=== PATIENT | male | born 1945 | race Caucasian/White ===

== ENCOUNTER 2016-08-13 09:30 | Inpatient (IN) | payer MEDICARE, BC ==
--- NOTE | 2016-08-07 20:17 | HP ---
HISTORY AND PHYSICAL: DATE OF ADMISSION/SURGERY: 08/13/16 DATE OF OFFICE VISIT: 08/07/16 PROVIDER: Dr. Tiara Valverde. (DICTATED BY ARAVIND PERSAUD NP) CHIEF COMPLAINT: Preop for right total knee arthroplasty. HISTORY OF PRESENT ILLNESS: Mr. Garcia is a 71-year-old gentleman who has been having increased right knee pain for a few years. He states that at rest, his knee does not bother him at all, but when he moves his knee, it begins to hurt. He states he ambulates using a walker. He has failed physical therapy, antiinflammatories, and intraarticular joint injections. He is now electing to have a total knee arthroplasty done. PAST MEDICAL HISTORY: 1. Morbid obesity. 2. Diabetes. 3. Hypertension. 4. Osteoarthritis. 5. COPD. 6. Spinal stenosis. 7. Cervical spondylosis. 8. Peripheral neuropathy. 9. Hernia. PAST SURGICAL HISTORY: 1. Left total knee arthroplasty. 2. Cholecystectomy. 3. Cervical spine fusion. 4. Large toe amputation and reattachment. MEDICATIONS: 1. Clonidine 0.3 mg 1 by mouth b.i.d. 2. Tylenol 325 mg as needed for pain. 3. Losartan potassium 50 mg 2 by mouth every day. 4. Levothyroxine sodium 112 mcg 1 by mouth every day. 5. Yumiko aspirin low dose 81 mg 1 by mouth every day. 6. Dutasteride 0.5 mg 1 p.o. daily. 7. Minoxidil. 8. Simethicone 80 mg 1 four times daily. 9. CharcoCaps. 10. NovoLog FlexPen 100 units per mL sliding scale. 11. Insulin glargine human 100 units per mL. ALLERGIES: SULFA ANTIBIOTICS, LIPITOR, AMLODIPINE, SIMVASTATIN, ENALAPRIL, AMBIEN, BACLOFEN, PANTOPRAZOLE. SOCIAL HISTORY: The patient lives with . The patient states he is a former smoker, smoked for 20 years, quit 30 years ago which equals to 2-pack-per -day smoking history. The patient states that he drinks occasionally. The patient denies any illicit drug use. REVIEW OF SYSTEMS: General: The patient denies fevers, chills, or night sweats. No known anesthesia problems. HEENT: The patient denies headaches, lightheadedness, or syncopal episodes. Cardiothoracic: The patient denies chest pain, heart palpitations, or edema. Pulmonary: The patient denies any shortness of breath with exertion, chronic cough, or COPD. GI: The patient denies any nausea, vomiting, diarrhea, or constipation. : The patient denies any nocturia, urinary frequency, or urinary urgency. Musculoskeletal: The patient admits to pain of the right knee. The patient denies any chronic or intermittent back pain. Neuro: The patient denies any paresthesias, numbness , seizures, stroke, or epilepsy. Integument: The patient denies any abrasions , lesions, rashes, lumps, or open sores. Endocrine: The patient denies any diabetes or thyroid issues. Hematology: The patient denies any easy bruising, anemia, or excessive bleeding. PHYSICAL EXAMINATION GENERAL: The patient is awake, alert, and oriented, in no acute distress. HEENT: Normocephalic, atraumatic. Hearing and vision are grossly intact. PULMONARY: Lungs clear to auscultation bilaterally with no wheezes, rales, or rhonchi. CARDIO: Regular rate and rhythm with S1 and S2. No S3 or S4 appreciated. No murmurs, rubs, or gallops. ABDOMEN: Umbilical hernia is visible. Bowel sounds in all 4 quadrants with significant distention. No palpable masses. Nontender. MUSCULOSKELETAL: Right lower extremity: The patient's skin is intact with moderate effusion of the knee with palpable tenderness to palpation along the anterior, medial, and lateral joint line. Range of motion is from 15 to 90 degrees of flexion. No varus or valgus instability. Negative for Pietro's. Distally, there is 5/5 ankle dorsiflexion and plantar flexion strength. The patient seems to have a decrease in sensation to light touch in the toes in a stocking glove distribution. Dorsalis pedis pulse and posterior tibial are 2+. DIAGNOSTIC STUDIES: Multiple views of the right knee showed severe end-stage degenerative osteoarthritis. There is osteophyte formation, subchondral sclerosis. ASSESSMENT: Preop for right total knee replacement. PLAN: The patient will return 10 to 14 days postoperatively for suture removal and followup. A prescription for Percocet 5/325 has been sent to the pharmacy of record to be used for postoperative pain management. A script for Coumadin was sent to the pharmacy for postop DVT prophylaxis. Colace was sent to the pharmacy to be used as needed for constipation. The risks and benefits of surgery were discussed with the patient today and he was amenable to this. Consent was signed. AIDEN JOSE [id number]/[facility] #: [id number] MTDDavid
[~2016-08-13 09:30] MED LIST: Buffered Lidocaine 1% SYR 3ML* 3 ML/SYR SYRINGE INTRADERM ONE; Famotidine IV* 10 MG/ML 2 ML (20 mg) IV ONE; Metoclopramide IV* 5 MG/ML 2 ML VIAL IV SLOW PU ONE
[2016-08-13] MEDS ORDERED: Metoclopramide IV* 5 MG/ML 2 ML VIAL ONE (11:41)
[2016-08-13] MEDS ORDERED: ceFAZolin 1 GM in Dextrose (*) 1 GM/50 ML BAG IVPB ONE (11:41)
[2016-08-13] MEDS ORDERED: ceFAZolin 2 GM PREMIX (*) 2 GM/50 ML BAG IVPB ONE (11:41)
[2016-08-13] MEDS ORDERED: Famotidine IV* 10 MG/ML 2 ML (20 mg) ONE (11:41)
[2016-08-13] MEDS ORDERED: Buffered Lidocaine 1% SYR 3ML* 3 ML/SYR SYRINGE ONE (11:41)
[2016-08-13] MEDS ORDERED: KETAMINE HCL* 50 MG/ML 10 ML VIAL ONE (13:29)
[2016-08-13] MEDS ORDERED: Morphine PF AMP (0.5MG/ML)* 5 MG/10 ML AMP ONE (13:29)
[2016-08-13] MEDS ORDERED: Midazolam* 1 MG/ML 5 ML VIAL (5 MG) ONE (13:29)
[2016-08-13] MEDS ORDERED: Sodium Chloride * 10 ML ONE (14:39)
[2016-08-13] MEDS ORDERED: Propofol* 10 MG/ML 20 ML BTL IV PUSH ONE (15:58)
[2016-08-13] MEDS ORDERED: DiMENhydriNATE IV* 50 MG/ML VIAL IV PUSH PRN (16:22)
[2016-08-13] MEDS ORDERED: Polyethylene Glycol 3350* 17 GM PACKET PO PRN (16:37)
[2016-08-13] MEDS ORDERED: Acetaminophen TAB* 325 MG PO PRN (16:37)
[2016-08-13] MEDS ORDERED: Bisacodyl SUPP* 10 MG SUPP PR PRN (16:37)
[2016-08-13] MEDS ORDERED: Magnesium Hydroxide LIQ* 30 ML UDC PO PRN (16:37)
[2016-08-13] MEDS ORDERED: Albuterol HFA INHALER* 8 gm MDI INH PRN (16:44)
[2016-08-13] MEDS ORDERED: NOVALOG INSULIN SUBCUT SCH (16:45)
[2016-08-13] MEDS ORDERED: Naloxone* 0.4 MG/ML 1 ML VIAL IV PRN (17:08)
[2016-08-13] MEDS ORDERED: Ondansetron INJ* 2 MG/ML VIAL IV PRN (17:08)
[2016-08-13] MEDS ORDERED: Dextrose 50% Syringe 50 ML* 25 GM/50 ML SYRINGE IV PUSH PRN (18:58)
[2016-08-13] MEDS ORDERED: oxyCODONE/Acetamin 5/325 MG* TAB ONE (20:02)
[2016-08-13] MEDS: oxyCODONE/Acetamin 5/325 MG* TAB PO PRN (20:03)
--- NOTE | 2016-08-13 20:28 | RAD ---
INDICATION: Right total knee arthroplasty COMPARISON: Preoperative x-ray dated May 24, 2016 TECHNIQUE: 2 view radiograph of the right knee. FINDINGS: The recently placed right knee prosthesis is anatomically aligned in the AP and lateral views. There is no evidence of periprostatic fracture. IMPRESSION: Anatomically aligned right knee prosthesis.
[2016-08-13] MEDS ORDERED: Insulin GLARGINE(*) 1 UNITS UNIT SUBCUT SCH (21:00)
[2016-08-13] MEDS: cloNIDine TAB* 0.1 MG PO SCH (21:33)
[2016-08-13] MEDS: Finasteride TAB* 5 MG PO SCH (21:34)
[2016-08-13] MEDS: Docusate CAP* 100 MG PO SCH (21:34)
[2016-08-13] MEDS: Insulin GLARGINE(*) 1 UNITS UNIT SUBCUT SCH (21:36)
--- NOTE | 2016-08-13 21:36 | CONS ---
CONSULTATION REPORT: ADDENDUM: Mr. Garcia is a 71-year-old male who is currently status post right knee replacement with Dr. Valverde. We were consulted in regards to his current medical problems including diabetes, hypertension. For further details of the patient's presentation, please see history and physical/consultation dictated by Candace De Leon on 08/13/16 with which I agree. Thank you very much for consult. We will follow the patient. [id number]/[facility] #: [id number] NAKUL
[2016-08-13] MEDS: Clindamycin 600 MG IVPREMIX(* 600 MG/50 ML SDV IV SCH (21:49)
[2016-08-13] MEDS ORDERED: Warfarin TAB(*) 6 MG PO ONE (22:00)
--- NOTE | 2016-08-13 23:23 | CONS ---
ATTENDING PHYSICIAN ADDENDUM INCLUDED ON THIS REPORT CONSULTATION REPORT: DATE OF CONSULTATION: 08/13/16 DATE OF ADMISSION: 08/13/16 PROVIDER: Amaris Burgess NP ATTENDING PHYSICIAN: Dr. Tolliver * (report dictated by Amaris Burgess NP) PRIMARY CARE PROVIDER: Dr. Lito Sosa. REFERRING PHYSICIAN: Dr. Valverde. CONSULTATION REASON: Co-medical management of comorbidities. HISTORY OF PRESENT ILLNESS: Mr. Garcia is a 71-year-old male with a past medical history of morbid obesity, insulin dependent type 2 diabetes, hypertension, COPD, who underwent an elective right total knee today, 08/13/16, with Dr. Valverde. Hospital Medicine was asked to co-medical manage the patient's comorbidities. The patient was seen and evaluated in the PACU at the bedside. The patient is alert and oriented x3, in no acute distress. The patient reports "I feel great." He denies any nausea. Denies any pain. The patient reports he underwent a left total knee several years ago and did very well. The patient reports that his diabetes is well controlled as well as his hypertension. He currently offers no complaints. The patient denies any recent illnesses. Denies any fever, chills, shortness of breath, or chest pain. PAST MEDICAL HISTORY: 1. Insulin dependent type 2 diabetes. 2. Morbid obesity. 3. Hypertension. 4. Osteoarthritis. 5. COPD. 6. Spinal stenosis. 7. Cervical spondylosis. 8. Peripheral neuropathy. 9. Hernia. 10. Status post left total knee arthroplasty. 11. Cholecystectomy. 12. Cervical spine fusion. 13. Large toe amputation reattachment. 14. Hypothyroidism. HOME MEDICATIONS: 1. Clonidine 0.3 mg p.o. b.i.d. 2. Acetaminophen 325 mg p.o. p.r.n. pain. 3. Losartan potassium 100 mg p.o. daily. 4. Synthroid 112 mcg p.o. daily. 5. Aspirin 81 mg p.o. daily. 6. Dutasteride 0.5 mg p.o. daily. 7. Insulin Lantus 80 units injection b.i.d. 8. NovoLog FlexPen 100 units/mL sliding scale. INPATIENT MEDICATIONS: 1. Clonidine 0.3 mg p.o. b.i.d. 2. Acetaminophen 650 mg p.o. q.4 hours p.r.n. 3. Albuterol HFA inhaler 2 puffs INH. q.4 hours p.r.n. 4. Dulcolax 10 mg DE daily p.r.n. 5. Colace 100 mg p.o. b.i.d. 6. Lovenox 30 mg subcu q.24 hours. 7. Insulin glargine 40 units subcu b.i.d. 8. Insulin lispro sliding scale. 9. Lactulose 30 mL p.o. q.6 hours p.r.n. 10. Synthroid 112 mcg p.o. daily. 11. Losartan 100 mg p.o. q.a.m. 12. Milk of Magnesia 30 mL p.o. q. 6 hours p.r.n. 13. Morphine 2 mg IV q.2 hours p.r.n. 14. Narcan 0.08 mg IV q.2 minutes p.r.n. 15. Zofran 4 mg IV q.6 hours p.r.n. 16. MiraLAX 17 g p.o. daily p.r.n. 17. Vitamin 1 tab p.o. daily. 18. Coumadin 6 mg p.o. once. 19. Benadryl 25 mg p.o. q.6 hours p.r.n. 20. Oxycodone 10 mg p.o. q.4 hours p.r.n. 21. Oxycodone/acetaminophen 1 to 2 tabs p.o. q.3 hours p.r.n. 22. Oxycodone/acetaminophen 2 tabs p.o. q.4 hours p.r.n. ALLERGIES: AMOXICILLIN, AMLODIPINE, ATENOLOL, BACLOFEN, ENALAPRIL, SULFA ANTIBIOTICS, LIPITOR, SIMVASTATIN, AMBIEN, PANTOPRAZOLE, HYDROCHLOROTHIAZIDE, ATORVASTATIN, PAXIL, OXYBUTYNIN, SINGULAIR, GLIPIZIDE, ESOMEPRAZOLE. FAMILY HISTORY: Reviewed and noncontributory. SOCIAL HISTORY: The patient is a former smoker. Smoked for approximately 20 years, quitting about 30 years ago. He reports a 2 pack per day smoking history. Occasional to rare alcohol use. Denies recreational drug use. The patient currently lives at home with his , who is his healthcare proxy. REVIEW OF SYSTEMS: A 14-point review of systems was performed. All the pertinent positives and negatives are mentioned in the history of present illness. All the remaining systems are negative. PHYSICAL EXAMINATION: Vital Signs: Temperature 97.0, heart rate 60, respirations 16, O2 sat 98% on 2 L, blood pressure 139/63. Appearance: Obese male sitting up on the PACU stretcher. Alert and oriented x3, in no acute distress. Good historian. Very friendly. Appropriate to situation. HEENT: Head is normocephalic, atraumatic. Pupils are equal and reactive to light. Oropharynx is clear. Dry mucous membranes. Neck: Supple. No cervical or supraclavicular lymphadenopathy. Cardiac: S1, S2. Regular rate and rhythm. No murmurs, rubs, or gallops appreciated. Respiratory: Lungs are clear to auscultation bilaterally. Good aeration throughout. Abdomen: Obese. Normal bowel sounds x4. Soft, nontender, nondistended. Umbilical hernia is visible. Extremities: Upper extremities have good strength 5/5. In regards to the patient's lower extremities, the patient can wiggle his toes, has sensation in his toes. His right knee has a clean, dry, and intact dressing with Cryo unit attached. Neuro: Cranial nerves II through XII are grossly intact. Psych: Appropriate to situation. Calm, appropriate. ASSESSMENT AND PLAN: Mr. Garcia is a 71-year-old male with a past medical history of morbid obesity, insulin dependent type 2 diabetes, hypertension, chronic obstructive pulmonary disease, previous tobacco abuse, and hypothyroidism, who presents to [facility] for an elective right total knee replacement by Dr. Valverde. Hospital Medicine was asked to co-medical manage the patient's comorbidities. 1. Status post right total knee replacement. Disposition per Dr. Valverde's orthopedic team. Pain management, bowel regimen, PT, OT, monitor H and H. 2. Insulin dependent type 2 diabetes. Plan to decrease the patient's Lantus by 50%. Per patient, he took 40 units of Lantus this morning prior to surgery. Plan to give the patient 40 units of Lantus this evening. Lispro sliding scale with fingerstick blood glucose AC. Consistent carb diet. 3. Hypertension, controlled. Continue losartan and clonidine. 4. Hypothyroidism. Continue Synthroid. 5. Chronic obstructive pulmonary disease, currently not in exacerbation. Encouraged incentive spirometer. Albuterol p.r.n. 6. DVT prophylaxis. Lovenox. 7. Code status. Full code. The patient's is the healthcare proxy. TIME SPENT: Approximately 60 minutes were spent on this consultation. Hospital Medicine will continue to follow along. AMARIS BURGESS, IVONE ADDENDUM: Mr. Garcia is a 71-year-old male who is currently status post right knee replacement with Dr. Valverde. We were consulted in regards to his current medical problems including diabetes, hypertension. For further details of the patient's presentation, please see history and physical/consultation dictated by Amaris Burgess on 08/13/16 with which I agree. Thank you very much for consult. We will follow the patient[place] [id number]/[facility] #: [id number] [place] [id number]/[facility] #: [id number] NAKUL
[2016-08-14] MEDS: oxyCODONE/Acetamin 5/325 MG* TAB PO PRN ×4 (05:26→16:30)
[2016-08-14] MEDS: Levothyroxine TAB* 112 MCG TAB PO SCH (05:26)
[2016-08-14] MEDS: Clindamycin 600 MG IVPREMIX(* 600 MG/50 ML SDV IV SCH ×2 (05:27→13:58)
[2016-08-14 06:30] LABS: Hematocrit 40 % (42-52)
[2016-08-14 06:54] LABS: BUN/Creatinine Ratio 13.6 (8-20); Calcium 8.7 mg/dL (8.6-10.3); EGFR African American 110.1 (>60); EGFR Non-African American 85.6 (>60); Potassium 4.4 mmol/L (3.5-5.0)
[2016-08-14] MEDS ORDERED: Ondansetron INJ* 2 MG/ML VIAL IV PRN (07:00)
[2016-08-14] MEDS ORDERED: diPHENhydraMINE IV* 50 MG/ML 1 ml VIAL (BENADRYL) IV PRN (07:00)
[2016-08-14] MEDS ORDERED: diPHENhydraMINE PO* 25 MG PO PRN (07:00)
[2016-08-14] MEDS ORDERED: oxyCODONE/Acetamin 5/325 MG* TAB PO PRN (07:00)
[2016-08-14] MEDS ORDERED: Ondansetron TAB* 4 MG PO PRN (07:00)
[2016-08-14] MEDS ORDERED: oxyCODONE TAB* 5 MG TAB PO PRN (07:00)
--- NOTE | 2016-08-14 07:54 | PN ---
Progress Note - Progress Note SOAP: Subjective: Pt. reports r knee is painful and stiff/weak. BG labile postop. Objective: RLE - dressing c/d/i. distally +df/pf, full sens lt, 2+ dp pulse. Vital Signs: Temp Pulse Resp BP Pulse Ox 98.4 F 92 18 135/51 94 08/14/16 07:35 08/14/16 07:35 08/14/16 07:35 08/14/16 07:35 08/14/16 07:35 Laboratory Results - last 24 hr 08/13/16 08/13/16 08/13/16 11:58 18:23 18:26 Hgb Hct INR (Anticoag Therapy) Sodium Potassium Chloride Carbon Dioxide Anion Gap BUN Creatinine Est GFR ( Amer) Est GFR (Non-Af Amer) BUN/Creatinine Ratio Glucose POC Glucose (mg/dL) 133 H 60 L 72 L Calcium 08/13/16 08/13/16 08/13/16 19:03 19:17 19:26 Hgb Hct INR (Anticoag Therapy) Sodium Potassium Chloride Carbon Dioxide Anion Gap BUN Creatinine Est GFR ( Amer) Est GFR (Non-Af Amer) BUN/Creatinine Ratio Glucose POC Glucose (mg/dL) 71 L 62 L 134 H Calcium 08/13/16 08/13/16 08/13/16 19:37 20:36 22:45 Hgb Hct INR (Anticoag Therapy) Sodium Potassium Chloride Carbon Dioxide Anion Gap BUN Creatinine Est GFR ( Amer) Est GFR (Non-Af Amer) BUN/Creatinine Ratio Glucose POC Glucose (mg/dL) 123 H 165 H 195 H Calcium 08/14/16 08/14/16 08/14/16 06:05 06:05 06:05 Hgb 13.0 L Hct 40 L INR (Anticoag Therapy) 1.06 Sodium 132 L Potassium 4.4 Chloride 99 L Carbon Dioxide 29 Anion Gap 4 BUN 12 Creatinine 0.88 Est GFR ( Amer) 110.1 Est GFR (Non-Af Amer) 85.6 BUN/Creatinine Ratio 13.6 Glucose 206 H POC Glucose (mg/dL) Calcium 8.7 08/14/16 07:28 Hgb Hct INR (Anticoag Therapy) Sodium Potassium Chloride Carbon Dioxide Anion Gap BUN Creatinine Est GFR ( Amer) Est GFR (Non-Af Amer) BUN/Creatinine Ratio Glucose POC Glucose (mg/dL) 236 H Calcium Assessment: 71 yo M pod 1 s/p RTKA Plan: Appreciate Medicine team diabetic management wbat RLE PT/OT 8 mg coumadin tonight, start lovenox per protocol when spinal removed rodriguez d/c this am
[2016-08-14] MEDS ORDERED: Losartan TAB* 25 MG PO SCH (09:00)
[2016-08-14] MEDS: Insulin LISPRO* 1 UNITS UNIT SUBCUT SCH ×3 (09:32→18:42)
[2016-08-14] MEDS: Insulin GLARGINE(*) 1 UNITS UNIT SUBCUT SCH ×2 (09:33→21:59)
[2016-08-14] MEDS: Losartan TAB* 25 MG PO SCH (09:35)
[2016-08-14] MEDS: Vitamin THERAPEUTIC TAB PO SCH (09:37)
[2016-08-14] MEDS: cloNIDine TAB* 0.1 MG PO SCH ×2 (09:37→21:58)
[2016-08-14] MEDS: Docusate CAP* 100 MG PO SCH ×2 (09:37→21:58)
--- NOTE | 2016-08-14 10:46 | OP ---
OPERATIVE REPORT: DATE OF OPERATION: 08/13/16 DATE OF : 47 SURGEON: Tiara Valverde MD ANESTHESIOLOGIST: Jaciel Mckenzie MD ANESTHESIA: Spinal. PRE-OP DIAGNOSIS: Severe end-stage degenerative osteoarthritis of the right knee joint. POST-OP DIAGNOSIS: Severe end-stage degenerative osteoarthritis of the right knee joint. OPERATIVE PROCEDURE: Right total knee arthroplasty. INDICATIONS: Mr. Garcia is a 71-year-old gentleman with years of increasingly severe right kne e pain. He failed conservative treatment with antiinflammatories, pain medications, intraarticular injections, and physical therapy. He elected to undergo right total knee arthroplasty due to contin ued pain and decreased quality of life. Radiographs and physical exam confirmed [id number] severe end-stage arthritis of the right knee joint. Informed consent was obtained from the patient. He understood the risks of the procedure included, but were not limited to, bleeding, infection, damage to nearby structures, continued pain, need for further surgery, intraoperative fracture, nerve palsy, hardware failure or loosening, stroke, heart attack, blood clot, and . He wished to proceed. TOURNIQUET TIME: 60 minutes. COMPLICATIONS: None. ESTIMATED BLOOD LOSS: 200 cc. SPECIMEN: Bone and cartilage from the right knee joint sent to Pathology. HARDWARE: This is [employer] cemented total knee hardware. For the cement, 2 packages of Sim plex bone cement. For the femur, a size 7 right femoral component. For the tibia, a size 7 right t ibial baseplate and an 11-mm posterior stabilized insert, and for the patella, 38, 3-peg all-poly pa tella. INTRAOPERATIVE FINDINGS: Intraoperatively, the patient was noted to have 10-degree flexion contract ure preoperatively. Postop range of motion was full extension to 120 degrees of flexion limited by morbid obese body habitus. The patient was noted to have severe full thickness cartilage loss in th e medial and patellofemoral compartments. DESCRIPTION OF PROCEDURE: Mr. Garcia was identified in the preanesthesia unit. His right lowe r extremity was marked as the correct operative side. Informed consent was signed and placed in the the chart. The patient was taken to the operating room and placed under spinal anesthesia. A Freeman catheter was placed. Tourniquet was placed on the right side. The right lower extremity was prepp ed and draped in the usual sterile fashion. Preop time-out was made to correctly identify the patie nt, side, and site. Appropriate preoperative antibiotics were given within 1 hour of incision. Tourniquet was inflated until the tourniquet time for this procedure was 60 minutes. A 10 blade was used to make a 14-cm midline incision. This was carried down to the extensor mechanism. A new 10 blade was used to make a standard medial parapatellar arthrotomy. The patella was subluxed laterall y. Soft tissue was subperiosteally elevated along the superomedial tibia to the mid sagittal plane using electrocautery. The knee was flexed up. Anterior horn of the lateral meniscus and ACL were s harply released. A drill was used to enter the distal femur. Intramedullary distal femoral cutting guide was placed and pinned into proper position. Oscillating saw was used to make the appropriate distal femoral cut. An external rotation guide was then pinned on the distal femur and the femur w as sized to a size 7. Size 7 multi-cutting jig was pinned on the distal femur and oscillating saw w as used to make the appropriate 4-chamfer cuts. All bony fragments were carefully removed. The PCL was completely released. Tibia was subluxed anteriorly. The extramedullary tibial cutting guide was pinned in to proper position on the proximal tibia. Oscillating saw was used to make a pr oximal tibial cut perpendicular to the mechanical axis of the tibia. The bone was carefully removed . The knee was brought out into full extension and there was some medial ligament tightness. Electr ocautery was used to perform a conservative release here. Medial and lateral ligamentous balancing were improved. Flexion and extension gaps were noted to be well balanced. The knee was out in full extension with the spacer blocks fitting nicely. The knee was flexed up. Lamina handle sander operator was placed both medially and laterally. Any remaining menis cus was carefully excised using electrocautery. Posterior femoral condyles had any osteophytes rachael zacarias using a curved osteotome and curette. Next, a size 7 femoral trial side right was impacted on to the distal femur. This implant trial had good fit and stability. The box for the posterior stabilized implant was prepared using a reamer a nd box-cut osteotome. Trial 7 tibial tray and 9-mm insert trial were placed. The knee was taken th rough a range of motion and noted to have full extension to 120 degrees of flexion. Good patellofem oral tracking. The patella was everted. 9 mm of patellar bone and cartilage were carefully removed using an oscillating saw. The patella was sized to a size 38. Three drill holes were drilled throu gh the patella using a size 38 guide. The 38 trial was placed and the knee was taken through range of motion. The patellofemoral tracking was satisfactory. All trials were carefully removed. The tibia was subluxed anteriorly and sized to a size 7. Proxim al tibia was prepared using a keel punch. All bony cut surfaces were copiously irrigated with steri le saline and dried. The final implants were cemented in place starting with the tibia followed by the femur and lastly the patella. An 11-mm insert trial was placed while the knee was brought out i nto full extension. The cement was allowed to fully cure and the tourniquet was turned down. Once the cement was fully cured, the capsule was checked for any bleeding or excess cement. Final implan t chosen was an 11-mm posterior stabilized articular insert. This was locked into the position on t he tibial tray. Stability of the insert was checked and rechecked and noted to be stable. Final range of motion with full extension to 120 degrees of flexion with good patellofemoral trackin g. The knee was copiously irrigated with sterile saline. The extensor mechanism was closed using in terrupted #1 Vicryl's. The rest of the incision was closed in a layered fashion using 0 and 2-0 Colin ryl's. Skin was closed using running 3-0 Vicryl suture. Sterile Xeroform, 4x4's, and Webril were u sed to cover the incision. Kin wrap and cold packs were placed over this. The patient's anesthesia was reversed without difficulty. He was taken to the PACU in stable condition. Intended weightbear ing will be weightbearing as tolerated. Intended DVT prophylaxis will be Coumadin with a Lovenox elba dge. [id number]/[facility] #: [id number]
[2016-08-14] MEDS: Morphine INJ* 2 MG/ML 1 ML CARPUJECT IV PRN ×2 (11:35→14:40)
[2016-08-14] MEDS ORDERED: Simethicone TAB* 80 MG TAB.CHEW PO PRN (12:09)
[2016-08-14] MEDS: Enoxaparin(*) 30 MG/0.3 ML SYR SUBCUT SCH (14:44)
[2016-08-14] MEDS ORDERED: Warfarin TAB(*) 4 MG PO ONE (17:00)
[2016-08-14] MEDS: Finasteride TAB* 5 MG PO SCH (18:43)
--- NOTE | 2016-08-14 20:22 | PN ---
Subjective Date of Service: 08/14/16 Interval History: pt reports he "feels pretty good today". no complaints. his knee pain is well controlled. Good appetite. No fevers or chills. No CP or SOB Objective Active Medications: Acetaminophen (Tylenol Tab*) 650 mg PO Q4H PRN PRN Reason: PAIN OR TEMPERATURE Albuterol (Ventolin Hfa Inhaler*) 2 puff INH Q4H PRN PRN Reason: SHORTNESS OF BREATH Bisacodyl (Dulcolax Supp*) 10 mg [place] DAILY PRN PRN Reason: constipation Clonidine HCl (Catapres Tab*) 0.3 mg PO BID [facility] Last Admin: 08/14/16 09:37 Dose: 0.3 mg Dextrose (D50w Syringe 50 Ml*) 12.5 gm IV PUSH .FOR FS < 60 - SS PRN PRN Reason: FS < 60 Last Admin: 08/13/16 19:19 Dose: 12.5 gm Diphenhydramine HCl (Benadryl Iv*) 12.5 mg IV Q6H PRN PRN Reason: PRURITIS Diphenhydramine HCl (Benadryl Po*) 25 mg PO Q6H PRN PRN Reason: itching Docusate Sodium (Colace Cap*) 100 mg PO BID [facility] Last Admin: 08/14/16 09:37 Dose: 100 mg Enoxaparin Sodium (Lovenox(*)) 30 mg SUBCUT Q24H [facility] Last Admin: 08/14/16 14:44 Dose: 30 mg Finasteride (Proscar Tab*) 5 mg PO QPM [facility] PRN Reason: Protocol Last Admin: 08/14/16 18:43 Dose: 5 mg Lactated Ringer's (Lactated Ringers 1000 Ml Bag*) 1,000 mls @ 100 mls/hr IV PER RATE [facility] Last Admin: 08/14/16 15:43 Dose: 100 mls/hr Insulin Glargine (Lantus(*)) 40 units SUBCUT BID [facility] Last Admin: 08/14/16 09:33 Dose: 40 units Insulin Human Lispro (Humalog*) 0 units SUBCUT AC [facility] PRN Reason: Protocol Last Admin: 08/14/16 18:42 Dose: 6 unit Lactulose (Lactulose*) 30 ml PO Q6H PRN PRN Reason: constipation Levothyroxine Sodium (Synthroid Tab*) 112 mcg PO DAILY@0600 [facility] Last Admin: 08/14/16 05:26 Dose: 112 mcg Losartan Potassium (Cozaar Tab*) 100 mg PO QAM [facility] Last Admin: 08/14/16 09:35 Dose: 100 mg Magnesium Hydroxide (Milk Of Magnesia Liq*) 30 ml PO Q6H PRN PRN Reason: constipation Morphine Sulfate (Morphine Inj (Syringe)*) 2 mg IV Q2H PRN PRN Reason: PAIN Last Admin: 08/14/16 14:40 Dose: 2 mg Multivitamins (Theragran Tab*) 1 tab PO DAILY [facility] Last Admin: 08/14/16 09:37 Dose: 1 tab Ondansetron HCl (Zofran Inj*) 4 mg IV Q6H PRN PRN Reason: nausea Ondansetron HCl (Zofran Tab*) 4 mg PO Q6H PRN PRN Reason: NAUSEA Oxycodone HCl (Roxycodone Tab*) 10 mg PO Q4H PRN PRN Reason: SEVERE PAIN Oxycodone/Acetaminophen (Percocet 5/325 Tab*) 1 tab PO Q3H PRN PRN Reason: PAIN - MODERATE Oxycodone/Acetaminophen (Percocet 5/325 Tab*) 2 tab PO Q3H PRN PRN Reason: PAIN - MODERATE Last Admin: 08/14/16 16:30 Dose: 2 tab Polyethylene Glycol/Electrolytes (Miralax*) 17 gm PO DAILY PRN PRN Reason: Constipation Simethicone (Mylicon*) 80 mg PO Q6H PRN PRN Reason: flatulence Last Admin: 08/14/16 13:03 Dose: 80 mg Vital Signs 08/13/16 08/13/16 08/13/16 20:30 20:50 21:00 Temperature 99.1 F 98.8 F 98.8 F Pulse Rate 106 111 111 Respiratory 18 18 18 Rate Blood Pressure 159/60 154/59 154/59 (mmHg) O2 Sat by Pulse 95 91 91 Oximetry 08/13/16 08/13/16 08/13/16 21:04 21:13 22:17 Temperature 99.0 F Pulse Rate 106 Respiratory 18 18 20 Rate Blood Pressure 154/48 (mmHg) O2 Sat by Pulse 95 Oximetry 08/13/16 08/13/1617 23:07 23:53 00:56 Temperature 98.8 F 99.1 F Pulse Rate 102 104 Respiratory 16 16 Rate Blood Pressure 159/62 133/58 (mmHg) O2 Sat by Pulse 93 94 94 Oximetry 08/14/16 08/14/16 08/14/16 03:20 05:26 07:26 Temperature 98.3 F Pulse Rate 107 Respiratory 16 18 18 Rate Blood Pressure 143/49 (mmHg) O2 Sat by Pulse 96 Oximetry 08/14/16 08/14/16 08/14/16 07:35 07:38 09:39 Temperature 98.4 F Pulse Rate 92 Respiratory 18 18 18 Rate Blood Pressure 135/51 (mmHg) O2 Sat by Pulse 94 94 Oximetry 08/14/16 08/14/16 08/14/16 11:34 11:35 11:39 Temperature 97.9 F Pulse Rate 97 Respiratory 17 18 16 Rate Blood Pressure 156/59 (mmHg) O2 Sat by Pulse 97 Oximetry 08/14/16 08/14/16 08/14/16 12:35 13:03 14:40 Temperature Pulse Rate Respiratory 18 16 18 Rate Blood Pressure (mmHg) O2 Sat by Pulse Oximetry 08/14/16 08/14/16 08/14/16 15:03 15:26 15:27 Temperature 98.3 F Pulse Rate 103 Respiratory 18 18 Rate Blood Pressure 146/52 (mmHg) O2 Sat by Pulse 85 92 Oximetry 08/14/16 08/14/16 08/14/16 15:40 16:30 18:30 Temperature Pulse Rate Respiratory 18 18 18 Rate Blood Pressure (mmHg) O2 Sat by Pulse Oximetry 08/14/16 18:54 Temperature Pulse Rate Respiratory Rate Blood Pressure (mmHg) O2 Sat by Pulse 92 Oximetry Oxygen Devices in Use Now: None Appearance: obese male A+O x3 sitting up on the side of the bed in NAD. at bedside Eyes: No Scleral Icterus, PERRLA Ears/Nose/Mouth/Throat: NL Teeth, Lips, Gums, Mucous Membranes Moist Neck: NL Appearance and Movements; NL JVP Respiratory: Symmetrical Chest Expansion and Respiratory Effort, Clear to Auscultation Cardiovascular: NL Sounds; No Murmurs; No JVD, RRR, No Edema Abdominal: NL Sounds; No Tenderness; No Distention Lymphatic: No Cervical Adenopathy Extremities: - - right knee wih CD+I dressing with cryo unit Skin: No Rash or Ulcers Neurological: Alert and Oriented x 3, NL Sensation, NL Muscle Strength and Tone Lines/Tubes/Other Access: Clean, Dry and Intact Peripheral IV Nutrition: Taking PO's Result Diagrams: 08/14/16 06:05 08/14/16 06:05 Assess/Plan/Problems-Billing Assessment: - Patient Problems (1) Status post total right knee replacement Comment: POD #1 Dispo per Ortho Pain management HH stable (2) Diabetes Comment: - FSBG AC. Resume home Lantus 80 units BID and continue lispro SS (3) HTN (hypertension) Comment: - stable. continue home meds. (4) Hypothyroid Comment: - continue synthroid (5) DVT prophylaxis Comment: coumaidn and lovenox (6) Full code status
[2016-08-15] MEDS: oxyCODONE/Acetamin 5/325 MG* TAB PO PRN ×3 (02:00→11:31)
[2016-08-15 06:23] LABS: Hematocrit 38 % (42-52); Hemoglobin 12.4 g/dl (14.0-18.0); Mean Corpuscular HGB Conc 33 g/dl (31-36); Mean Corpuscular Hemoglobin 30 pg (27-31); Mean Corpuscular Volume 89 fL (80-94); Mean Platelet Volume 9 um3 (7.4-10.4); Red Cell Distribution Width 14 % (10.5-15); White Blood Count 12.5 10^3/ul (3.5-10.8)
[2016-08-15] MEDS: Levothyroxine TAB* 112 MCG TAB PO SCH (06:30)
[2016-08-15 06:50] LABS: BUN/Creatinine Ratio 15.5 (8-20); Calcium 9.5 mg/dL (8.6-10.3); EGFR African American 98.4 (>60); EGFR Non-African American 76.5 (>60); Potassium 4.5 mmol/L (3.5-5.0)
[2016-08-15] MEDS: Insulin GLARGINE(*) 1 UNITS UNIT SUBCUT SCH ×2 (08:35→21:44)
[2016-08-15] MEDS: Insulin LISPRO* 1 UNITS UNIT SUBCUT SCH ×4 (08:36→21:43)
[2016-08-15] MEDS: cloNIDine TAB* 0.1 MG PO SCH ×2 (08:37→21:45)
[2016-08-15] MEDS: Docusate CAP* 100 MG PO SCH ×2 (08:37→21:46)
[2016-08-15] MEDS: Vitamin THERAPEUTIC TAB PO SCH (08:37)
[2016-08-15] MEDS: Losartan TAB* 25 MG PO SCH (08:37)
--- NOTE | 2016-08-15 09:16 | PN ---
Progress Note - Progress Note SOAP: Subjective: [Pt was seen this morning while laying in bed. Pt states that he is doing much better than yesterday. States that his pain is really coming down and that he is hoping it will continue on that path. Pt states he is taking his pain meds as he needs them. Pt denies any SOB, CP or calf pain ] Objective: [General: pt is alert, awake and oriented. Appears in no acute distress MSK: RLE: Pts dressing was changed today. Old dressing had minimal amount of dried blood. No other drainage noted. Incision is clean, dry and intact. No discharge from incision. Pt is able to dorsiflex and planterflex. Able to wiggle toes. Pt has 2+ dp and PT. Pt is neurovascularly intact distally to light touch. ] Vital Signs Temp 98.4 F 08/15/16 07:29 Pulse 91 08/15/16 07:29 Resp 18 08/15/16 08:30 BP 117/41 08/15/16 03:41 Pulse Ox 95 08/15/16 07:29 Intake & Output 08/14/16 08/15/16 08/15/16 18:59 06:59 18:59 Intake Total 1512 640 250 Output Total 1625 125 550 Balance -113 515 -300 Intake: IV Fluids 922 0 ABX - CLINDAMYCIN 0 LR 922 IVPB 150 ABX - CLINDAMYCIN 150 Oral 440 640 250 Output: Urine 125 550 Freeman 1625 Other: Estimated Void Large # Bowel Movements 0 # Voids 1 Assessment: [POD#2 RTKA] Plan: [Pt had dressing changed today. Pt will continue PT/OT Pt will continue current pain management regiment. Appreciate Medicine team diabetic management wbat RLE PT/OT 6mg of coumadin tonight. ]
--- NOTE | 2016-08-15 13:35 | PN ---
Progress Note - Progress Note Note: ANESTHESIOLOGY FOLLOW-UP Patient is alert, sitting in chair. He denies back pain or headache. Satisfactory recover after (continuous) spinal anesthesia.
--- NOTE | 2016-08-15 14:11 | PN ---
Subjective Date of Service: 08/15/16 Interval History: Pt reports pain in right knee today. He reports its manageable but feels like its hard to ambulate. reports high blood sugars. no SOB or CP. No fevers chills. tolerating PO, no N/V/D. Objective Active Medications: Acetaminophen (Tylenol Tab*) 650 mg PO Q4H PRN PRN Reason: PAIN OR TEMPERATURE Albuterol (Ventolin Hfa Inhaler*) 2 puff INH Q4H PRN PRN Reason: SHORTNESS OF BREATH Bisacodyl (Dulcolax Supp*) 10 mg [place] DAILY PRN PRN Reason: constipation Clonidine HCl (Catapres Tab*) 0.3 mg PO BID [facility] Last Admin: 08/15/16 08:37 Dose: 0.3 mg Dextrose (D50w Syringe 50 Ml*) 12.5 gm IV PUSH .FOR FS < 60 - SS PRN PRN Reason: FS < 60 Last Admin: 08/13/16 19:19 Dose: 12.5 gm Diphenhydramine HCl (Benadryl Iv*) 12.5 mg IV Q6H PRN PRN Reason: PRURITIS Diphenhydramine HCl (Benadryl Po*) 25 mg PO Q6H PRN PRN Reason: itching Docusate Sodium (Colace Cap*) 100 mg PO BID [facility] Last Admin: 08/15/16 08:37 Dose: 100 mg Enoxaparin Sodium (Lovenox(*)) 30 mg SUBCUT Q24H [facility] Last Admin: 08/14/16 14:44 Dose: 30 mg Finasteride (Proscar Tab*) 5 mg PO QPM [facility] PRN Reason: Protocol Last Admin: 08/14/16 18:43 Dose: 5 mg Lactated Ringer's (Lactated Ringers 1000 Ml Bag*) 1,000 mls @ 100 mls/hr IV PER RATE [facility] Last Admin: 08/14/16 15:43 Dose: 100 mls/hr Insulin Glargine (Lantus(*)) 80 units SUBCUT BID [facility] Last Admin: 08/15/16 08:35 Dose: 80 units Insulin Human Lispro (Humalog*) 0 units SUBCUT AC [facility] PRN Reason: Protocol Last Admin: 08/15/16 12:52 Dose: 9 unit Lactulose (Lactulose*) 30 ml PO Q6H PRN PRN Reason: constipation Levothyroxine Sodium (Synthroid Tab*) 112 mcg PO DAILY@0600 [facility] Last Admin: 08/15/16 06:30 Dose: 112 mcg Losartan Potassium (Cozaar Tab*) 100 mg PO QAM [facility] Last Admin: 08/15/16 08:37 Dose: 100 mg Magnesium Hydroxide (Milk Of Magnesia Liq*) 30 ml PO Q6H PRN PRN Reason: constipation Morphine Sulfate (Morphine Inj (Syringe)*) 2 mg IV Q2H PRN PRN Reason: PAIN Last Admin: 08/14/16 14:40 Dose: 2 mg Multivitamins (Theragran Tab*) 1 tab PO DAILY [facility] Last Admin: 08/15/16 08:37 Dose: 1 tab Ondansetron HCl (Zofran Inj*) 4 mg IV Q6H PRN PRN Reason: nausea Ondansetron HCl (Zofran Tab*) 4 mg PO Q6H PRN PRN Reason: NAUSEA Oxycodone HCl (Roxycodone Tab*) 10 mg PO Q4H PRN PRN Reason: SEVERE PAIN Last Admin: 08/14/16 21:56 Dose: 10 mg Oxycodone/Acetaminophen (Percocet 5/325 Tab*) 1 tab PO Q3H PRN PRN Reason: PAIN - MODERATE Oxycodone/Acetaminophen (Percocet 5/325 Tab*) 2 tab PO Q3H PRN PRN Reason: PAIN - MODERATE Last Admin: 08/15/16 11:31 Dose: 2 tab Pharmacy Profile Note (Coumadin Daily Reminder*) 1 note FOLLOW UP 1700 [facility] Polyethylene Glycol/Electrolytes (Miralax*) 17 gm PO DAILY PRN PRN Reason: Constipation Simethicone (Mylicon*) 80 mg PO Q6H PRN PRN Reason: flatulence Last Admin: 08/14/16 13:03 Dose: 80 mg Warfarin Sodium (Coumadin Tab(*)) 8 mg PO ONCE@1700 [facility] PRN Reason: Protocol Stop: 08/15/16 17:01 Vital Signs 08/15/16 08/15/16 08/15/16 05:21 06:30 07:29 Temperature 98.4 F Pulse Rate 91 Respiratory 20 24 Rate Blood Pressure (mmHg) O2 Sat by Pulse 92 95 Oximetry 08/15/16 08/15/16 08/15/16 08:00 08:30 11:31 Temperature 98.5 F Pulse Rate 103 Respiratory 18 18 20 Rate Blood Pressure 148/58 (mmHg) O2 Sat by Pulse 91 Oximetry 08/15/16 13:31 Temperature Pulse Rate Respiratory 18 Rate Blood Pressure (mmHg) O2 Sat by Pulse Oximetry Oxygen Devices in Use Now: None Appearance: 71 yo obese male sitting up in a chair in NAD. A+O x3 Eyes: No Scleral Icterus, PERRLA Ears/Nose/Mouth/Throat: NL Teeth, Lips, Gums, Mucous Membranes Moist Neck: NL Appearance and Movements; NL JVP Respiratory: Symmetrical Chest Expansion and Respiratory Effort, Clear to Auscultation Cardiovascular: NL Sounds; No Murmurs; No JVD, RRR, No Edema Abdominal: NL Sounds; No Tenderness; No Distention, - - obese Extremities: - - right knee with dressing/abhi wrap with cryo unit - good sensation proximal and distal - skin warm, pink, dry Skin: No Rash or Ulcers, No Nodules or Sclerosis Neurological: Alert and Oriented x 3, NL Sensation, NL Muscle Strength and Tone Lines/Tubes/Other Access: Clean, Dry and Intact Peripheral IV Nutrition: Taking PO's Result Diagrams: 08/15/16 06:01 08/15/16 06:01 Assess/Plan/Problems-Billing Assessment: 71 yo male with a PMH of morbid obesity, IDDM-2, HTN, COPD, hypothyroidism who underwent an elective Right TKR on 08/13/16. - Patient Problems (1) Status post total right knee replacement Comment: POD #2 Dispo per Ortho Pain management HH stable PT/OT (2) Diabetes Comment: - Continues to have hypergylcemia; pt changed back to home Lantus 80 units BID and continue lispro SS. Change FSBG to ACHS. (3) HTN (hypertension) Comment: - stable. continue home meds. (4) Hypothyroid Comment: - continue synthroid (5) DVT prophylaxis Comment: lovenox bridge to coumadin (6) Full code status Status and Disposition: inpatient. DIspo per Ortho. Hospital Medicine co-medical managing co-morbidities
[2016-08-15] MEDS: Enoxaparin(*) 30 MG/0.3 ML SYR SUBCUT SCH (15:20)
[2016-08-15] MEDS ORDERED: Warfarin TAB(*) 4 MG PO ONE (17:00)
[2016-08-15] MEDS: Finasteride TAB* 5 MG PO SCH (17:49)
[2016-08-16] MEDS: Levothyroxine TAB* 112 MCG TAB PO SCH (05:54)
[2016-08-16 07:14] LABS: Hematocrit 36 % (42-52); Hemoglobin 11.9 g/dl (14.0-18.0); Mean Corpuscular HGB Conc 33 g/dl (31-36); Mean Corpuscular Hemoglobin 29 pg (27-31); Mean Corpuscular Volume 89 fL (80-94); Mean Platelet Volume 9 um3 (7.4-10.4); Red Blood Count 4.06 10^6/ul (4.0-5.4); Red Cell Distribution Width 14 % (10.5-15); White Blood Count 12.2 10^3/ul (3.5-10.8)
[2016-08-16 07:24] LABS: BUN/Creatinine Ratio 18.9 (8-20); Calcium 9.2 mg/dL (8.6-10.3); EGFR African American 107.3 (>60); EGFR Non-African American 83.4 (>60); Potassium 4.1 mmol/L (3.5-5.0)
[2016-08-16] MEDS: Vitamin THERAPEUTIC TAB PO SCH (09:38)
[2016-08-16] MEDS: Losartan TAB* 25 MG PO SCH (09:38)
[2016-08-16] MEDS: cloNIDine TAB* 0.1 MG PO SCH ×2 (09:38→21:09)
[2016-08-16] MEDS: Insulin GLARGINE(*) 1 UNITS UNIT SUBCUT SCH ×2 (09:39→21:11)
[2016-08-16] MEDS: Docusate CAP* 100 MG PO SCH ×2 (09:39→21:09)
[2016-08-16] MEDS: Insulin LISPRO* 1 UNITS UNIT SUBCUT SCH ×4 (09:40→21:28)
[2016-08-16] MEDS: oxyCODONE/Acetamin 5/325 MG* TAB PO PRN ×3 (09:45→21:09)
--- NOTE | 2016-08-16 11:03 | PN ---
Progress Note - Progress Note SOAP: Subjective: [71 y/o male s/p R TKA 08/13/2016. Patient reports feeling well, no shortness of breath or chest pain. Currently on oxygen Working with PT, does not want to go to senior living, not cleared by PT, currently looking into PMRU Objective: [General- Well appearing, NAD, alert resting comrfotably MSK- sensation to light touch intact, PT pulses 2+ b/l, mild edema b/l LE's, weak dorsiflexion, full plantarflexion R LE. Incision C/D/I, sutures in place , dressed with gauze and RUDY wrap. ] Vital Signs Temp 98.9 F 08/16/16 08:00 Pulse 98 08/16/16 08:00 Resp 16 08/16/16 09:45 BP 153/67 08/16/16 08:00 Pulse Ox 93 08/16/16 08:00 Intake & Output 08/15/16 08/16/16 08/16/16 18:59 06:59 18:59 Intake Total 540 150 Output Total 1075 450 Balance -535 -300 Intake: Oral 540 150 Output: Urine 1075 450 Other: Estimated Void Medium Laboratory Results - last 24 hr 08/15/16 08/15/16 08/15/16 11:32 17:26 21:31 WBC RBC Hgb Hct MCV MCH MCHC RDW Plt Count MPV Neut % (Auto) Lymph % (Auto) Catron % (Auto) Eos % (Auto) Baso % (Auto) Absolute Neuts (auto) Absolute Lymphs (auto) Absolute Monos (auto) Absolute Eos (auto) Absolute Basos (auto) Absolute Nucleated RBC Nucleated RBC % INR (Anticoag Therapy) Sodium Potassium Chloride Carbon Dioxide Anion Gap BUN Creatinine Est GFR ( Amer) Est GFR (Non-Af Amer) BUN/Creatinine Ratio Glucose POC Glucose (mg/dL) 268 H 174 H 246 H Calcium 08/16/16 08/16/16 08/16/16 06:59 06:59 06:59 WBC 12.2 H RBC 4.06 Hgb 11.9 L Hct 36 L MCV 89 MCH 29 MCHC 33 RDW 14 Plt Count 125 L MPV 9 Neut % (Auto) 78.3 Lymph % (Auto) 8.8 L Catron % (Auto) 10.0 H Eos % (Auto) 2.3 Baso % (Auto) 0.6 Absolute Neuts (auto) 9.5 H Absolute Lymphs (auto) 1.1 Absolute Monos (auto) 1.2 H Absolute Eos (auto) 0.3 Absolute Basos (auto) 0.1 Absolute Nucleated RBC 0.01 Nucleated RBC % 0.1 INR (Anticoag Therapy) 1.43 H Sodium 132 L Potassium 4.1 Chloride 98 L Carbon Dioxide 29 Anion Gap 5 BUN 17 Creatinine 0.90 Est GFR ( Amer) 107.3 Est GFR (Non-Af Amer) 83.4 BUN/Creatinine Ratio 18.9 Glucose 150 H POC Glucose (mg/dL) Calcium 9.2 08/16/16 08:42 WBC RBC Hgb Hct MCV MCH MCHC RDW Plt Count MPV Neut % (Auto) Lymph % (Auto) Catron % (Auto) Eos % (Auto) Baso % (Auto) Absolute Neuts (auto) Absolute Lymphs (auto) Absolute Monos (auto) Absolute Eos (auto) Absolute Basos (auto) Absolute Nucleated RBC Nucleated RBC % INR (Anticoag Therapy) Sodium Potassium Chloride Carbon Dioxide Anion Gap BUN Creatinine Est GFR ( Amer) Est GFR (Non-Af Amer) BUN/Creatinine Ratio Glucose POC Glucose (mg/dL) 210 H Calcium Active Medications Generic Name Dose Route Start Last Admin Trade Name Freq PRN Reason Stop Dose Admin Acetaminophen 650 mg 08/13/16 16:37 08/15/16 23:58 Tylenol Tab* PO 650 mg Q4H PRN Administration PAIN OR TEMPERATURE Albuterol 2 puff 08/13/16 16:44 Ventolin Hfa Inhaler* INH Q4H PRN SHORTNESS OF BREATH Bisacodyl 10 mg 08/13/16 16:37 Dulcolax Supp* [place] DAILY PRN constipation Clonidine HCl 0.3 mg 08/13/16 22:00 08/16/16 09:38 Catapres Tab* PO 0.3 mg BID [facility] Administration Dextrose 12.5 gm 08/13/16 18:58 08/13/16 19:19 D50w Syringe 50 Ml* IV PUSH 12.5 gm .FOR FS < 60 - SS PRN Administration FS < 60 Diphenhydramine HCl 12.5 mg 08/14/16 07:00 Benadryl Iv* IV Q6H PRN PRURITIS Diphenhydramine HCl 25 mg 08/14/16 07:00 Benadryl Po* PO Q6H PRN itching Docusate Sodium 100 mg 08/13/16 21:00 08/16/16 09:39 Colace Cap* PO 100 mg BID [facility] Administration Enoxaparin Sodium 30 mg 08/14/16 15:00 08/15/16 15:20 Lovenox(*) SUBCUT 30 mg Q24H [facility] Administration Finasteride 5 mg 08/13/16 22:00 08/15/16 17:49 Proscar Tab* PO 5 mg QPM [facility] Administration Protocol Lactated Ringer's 1,000 mls @ 100 mls/hr 08/13/16 17:00 08/14/16 15:43 Lactated Ringers 1000 Ml Bag* IV 100 mls/hr PER RATE [facility] Administration Insulin Glargine 80 units 08/14/16 21:00 08/16/16 09:39 Lantus(*) SUBCUT 80 units BID [facility] Administration Insulin Human Lispro 0 units 08/15/16 16:30 08/16/16 09:40 Humalog* SUBCUT 6 units ACHS [facility] Administration Protocol Lactulose 30 ml 08/13/16 16:37 Lactulose* PO Q6H PRN constipation Levothyroxine Sodium 112 mcg 08/14/16 06:00 08/16/16 05:54 Synthroid Tab* PO 112 mcg DAILY@0600 [facility] Administration Losartan Potassium 100 mg 08/14/16 09:00 08/16/16 09:38 Cozaar Tab* PO 100 mg QAM [facility] Administration Magnesium Hydroxide 30 ml 08/13/16 16:37 Milk Of Magnesia Liq* PO Q6H PRN constipation Morphine Sulfate 2 mg 08/14/16 07:00 08/14/16 14:40 Morphine Inj (Syringe)* IV 2 mg Q2H PRN Administration PAIN Multivitamins 1 tab 08/14/16 09:00 08/16/16 09:38 Theragran Tab* PO 1 tab DAILY [facility] Administration Ondansetron HCl 4 mg 08/14/16 07:00 Zofran Inj* IV Q6H PRN nausea Ondansetron HCl 4 mg 08/14/16 07:00 Zofran Tab* PO Q6H PRN NAUSEA Oxycodone HCl 10 mg 08/14/16 07:00 08/14/16 21:56 Roxycodone Tab* PO 10 mg Q4H PRN Administration SEVERE PAIN Oxycodone/Acetaminophen 1 tab 08/14/16 07:00 Percocet 5/325 Tab* PO Q3H PRN PAIN - MODERATE Oxycodone/Acetaminophen 2 tab 08/14/16 07:00 08/16/16 09:45 Percocet 5/325 Tab* PO 2 tab Q3H PRN Administration PAIN - MODERATE Pharmacy Profile Note 1 note 08/15/16 17:00 08/15/16 15:22 Coumadin Daily Reminder* FOLLOW UP 1 note 1700 [facility] Administration Polyethylene Glycol/Electrolytes 17 gm 08/13/16 16:37 Miralax* PO DAILY PRN Constipation Simethicone 80 mg 08/14/16 12:09 08/14/16 13:03 Mylicon* PO 80 mg Q6H PRN Administration flatulence Assessment: 71 y/o male s/p R TKA 08/13/2016 Plan: - Awaiting PMRU recommendations - INR subtheraputic, continue lovenox, couamdin 8mg tonight. - Continue PT/ OT - Continue to monitor WBC- stable. - Appreciate hospitalist consult, continue to monitor DM.
--- NOTE | 2016-08-16 13:38 | PN ---
Subjective Date of Service: 08/16/16 Interval History: patient reports he feels better today, less pain and feels that he can move around better today. No SOB or CP. No fevers or chills Objective Active Medications: Acetaminophen (Tylenol Tab*) 650 mg PO Q4H PRN PRN Reason: PAIN OR TEMPERATURE Last Admin: 08/15/16 23:58 Dose: 650 mg Albuterol (Ventolin Hfa Inhaler*) 2 puff INH Q4H PRN PRN Reason: SHORTNESS OF BREATH Bisacodyl (Dulcolax Supp*) 10 mg [place] DAILY PRN PRN Reason: constipation Clonidine HCl (Catapres Tab*) 0.3 mg PO BID [facility] Last Admin: 08/16/16 09:38 Dose: 0.3 mg Dextrose (D50w Syringe 50 Ml*) 12.5 gm IV PUSH .FOR FS < 60 - SS PRN PRN Reason: FS < 60 Last Admin: 08/13/16 19:19 Dose: 12.5 gm Diphenhydramine HCl (Benadryl Iv*) 12.5 mg IV Q6H PRN PRN Reason: PRURITIS Diphenhydramine HCl (Benadryl Po*) 25 mg PO Q6H PRN PRN Reason: itching Docusate Sodium (Colace Cap*) 100 mg PO BID [facility] Last Admin: 08/16/16 09:39 Dose: 100 mg Enoxaparin Sodium (Lovenox(*)) 30 mg SUBCUT Q24H [facility] Last Admin: 08/15/16 15:20 Dose: 30 mg Finasteride (Proscar Tab*) 5 mg PO QPM [facility] PRN Reason: Protocol Last Admin: 08/15/16 17:49 Dose: 5 mg Lactated Ringer's (Lactated Ringers 1000 Ml Bag*) 1,000 mls @ 100 mls/hr IV PER RATE [facility] Last Admin: 08/14/16 15:43 Dose: 100 mls/hr Insulin Glargine (Lantus(*)) 80 units SUBCUT BID [facility] Last Admin: 08/16/16 09:39 Dose: 80 units Insulin Human Lispro (Humalog*) 0 units SUBCUT ACHS [facility] PRN Reason: Protocol Last Admin: 08/16/16 13:21 Dose: 6 units Lactulose (Lactulose*) 30 ml PO Q6H PRN PRN Reason: constipation Levothyroxine Sodium (Synthroid Tab*) 112 mcg PO DAILY@0600 [facility] Last Admin: 08/16/16 05:54 Dose: 112 mcg Losartan Potassium (Cozaar Tab*) 100 mg PO QAM [facility] Last Admin: 08/16/16 09:38 Dose: 100 mg Magnesium Hydroxide (Milk Of Magnesia Liq*) 30 ml PO Q6H PRN PRN Reason: constipation Morphine Sulfate (Morphine Inj (Syringe)*) 2 mg IV Q2H PRN PRN Reason: PAIN Last Admin: 08/14/16 14:40 Dose: 2 mg Multivitamins (Theragran Tab*) 1 tab PO DAILY [facility] Last Admin: 08/16/16 09:38 Dose: 1 tab Ondansetron HCl (Zofran Inj*) 4 mg IV Q6H PRN PRN Reason: nausea Ondansetron HCl (Zofran Tab*) 4 mg PO Q6H PRN PRN Reason: NAUSEA Oxycodone HCl (Roxycodone Tab*) 10 mg PO Q4H PRN PRN Reason: SEVERE PAIN Last Admin: 08/14/16 21:56 Dose: 10 mg Oxycodone/Acetaminophen (Percocet 5/325 Tab*) 1 tab PO Q3H PRN PRN Reason: PAIN - MODERATE Oxycodone/Acetaminophen (Percocet 5/325 Tab*) 2 tab PO Q3H PRN PRN Reason: PAIN - MODERATE Last Admin: 08/16/16 09:45 Dose: 2 tab Pharmacy Profile Note (Coumadin Daily Reminder*) 1 note FOLLOW UP 1700 [facility] Last Admin: 08/15/16 15:22 Dose: 1 note Polyethylene Glycol/Electrolytes (Miralax*) 17 gm PO DAILY PRN PRN Reason: Constipation Simethicone (Mylicon*) 80 mg PO Q6H PRN PRN Reason: flatulence Last Admin: 08/14/16 13:03 Dose: 80 mg Warfarin Sodium (Coumadin Tab(*)) 8 mg PO ONCE@1700 ONE PRN Reason: Protocol Stop: 08/16/16 17:01 Vital Signs 08/15/16 08/15/16 08/15/16 15:47 19:24 19:33 Temperature 98.3 F 98.8 F Pulse Rate 102 118 Respiratory 20 24 Rate Blood Pressure 142/55 142/41 (mmHg) O2 Sat by Pulse 94 94 94 Oximetry 08/15/16 08/15/16 08/16/16 21:45 23:52 03:35 Temperature 100.4 F Pulse Rate 96 Respiratory 20 16 Rate Blood Pressure 111/51 (mmHg) O2 Sat by Pulse 95 94 Oximetry 08/16/16 08/16/16 08/16/16 04:11 08:00 09:45 Temperature 99.0 F 98.9 F Pulse Rate 89 98 Respiratory 16 16 16 Rate Blood Pressure 145/49 153/67 (mmHg) O2 Sat by Pulse 96 93 Oximetry Oxygen Devices in Use Now: None Appearance: obese male A+O x3 sitting up in a chair in NAD Eyes: No Scleral Icterus, PERRLA Ears/Nose/Mouth/Throat: NL Teeth, Lips, Gums, Mucous Membranes Moist Neck: NL Appearance and Movements; NL JVP Respiratory: Symmetrical Chest Expansion and Respiratory Effort, Clear to Auscultation Cardiovascular: NL Sounds; No Murmurs; No JVD, RRR, No Edema Abdominal: NL Sounds; No Tenderness; No Distention Extremities: - - knee with cryo unit Skin: No Rash or Ulcers, No Nodules or Sclerosis Neurological: Alert and Oriented x 3, NL Sensation, NL Gait, NL Muscle Strength and Tone Lines/Tubes/Other Access: Clean, Dry and Intact Peripheral IV Nutrition: Taking PO's Result Diagrams: 08/16/16 06:59 08/16/16 06:59 Assess/Plan/Problems-Billing Assessment: 71 yo male with a PMH of morbid obesity, IDDM-2, HTN, COPD, hypothyroidism who underwent an elective Right TKR on 08/13/16. - Patient Problems (1) Status post total right knee replacement Comment: POD #3 Dispo per Ortho Doing well Pain management HH stable PT/OT (2) Diabetes Comment: - Improving; continue home Lantus 80 units BID and continue lispro SS. Continue FSBG to ACHS. (3) HTN (hypertension) Comment: - stable. continue home meds. (4) Hypothyroid Comment: - continue synthroid (5) DVT prophylaxis Comment: lovenox bridge to coumadin (6) Full code status Status and Disposition: inpatient. DIspo per Ortho. Hospital Medicine co-medical managing co-morbidities
[2016-08-16] MEDS: Enoxaparin(*) 30 MG/0.3 ML SYR SUBCUT SCH (15:29)
[2016-08-16] MEDS ORDERED: Warfarin TAB(*) 4 MG PO ONE (17:00)
[2016-08-16] MEDS: Finasteride TAB* 5 MG PO SCH (18:03)
[2016-08-17] MEDS: oxyCODONE/Acetamin 5/325 MG* TAB PO PRN ×3 (04:20→11:36)
[2016-08-17] MEDS: Levothyroxine TAB* 112 MCG TAB PO SCH (05:48)
[2016-08-17 07:07] LABS: Hematocrit 37 % (42-52)
[2016-08-17] MEDS: Insulin LISPRO* 1 UNITS UNIT SUBCUT SCH (07:34)
[2016-08-17] MEDS: Losartan TAB* 25 MG PO SCH (08:25)
[2016-08-17] MEDS: Docusate CAP* 100 MG PO SCH (08:25)
[2016-08-17] MEDS: cloNIDine TAB* 0.1 MG PO SCH (08:25)
[2016-08-17] MEDS: Vitamin THERAPEUTIC TAB PO SCH (08:25)
[2016-08-17] MEDS ORDERED: Insulin GLARGINE(*) 1 UNITS UNIT SUBCUT SCH (09:00)
--- NOTE | 2016-08-17 09:36 | PN ---
Progress Note - Progress Note SOAP: Subjective: Pt. reports he is doing better today with PT and wants to go home. Objective: RLE - inc c/d/i. distally + df/pf, full sens lt, 2+ dp pulse. Vital Signs: Temp Pulse Resp BP Pulse Ox 98.7 F 98 18 130/64 94 08/17/16 07:23 08/17/16 07:23 08/17/16 07:37 08/17/16 07:23 08/17/16 07:23 Laboratory Results - last 24 hr 08/16/16 08/16/16 08/16/16 11:49 17:25 21:21 Hgb Hct INR (Anticoag Therapy) POC Glucose (mg/dL) 202 H 170 H 157 H 08/17/16 08/17/16 08/17/16 06:54 06:54 07:31 Hgb 12.0 L Hct 37 L INR (Anticoag Therapy) 1.36 H POC Glucose (mg/dL) 89 Assessment: 71 yo M pod 4 s/p RTKA Plan: give lovenox dose today. 8 mg coumadin sat and sun. recheck inr on friday cont pt/ot wbat rle d/c to home today with vns
[2016-08-17] MEDS: Enoxaparin(*) 30 MG/0.3 ML SYR SUBCUT SCH (11:37)
[2016-08-17 12:09] VITALS: BP 138/58
[2016-08-17] MEDS ORDERED: Warfarin TAB(*) 4 MG PO ONE (17:00)
--- NOTE | 2016-08-18 00:28 | DS ---
DICTATION ENDS ABRUPTLY - FULLY REDICTATED DISCHARGE SUMMARY: DATE OF ADMISSION: 08/13/16 DATE OF DISCHARGE: 08/17/16 PROVIDER: Tiara Valverde MD ADMITTING DIAGNOSIS: Severe right knee osteoarthritis. PROCEDURE: Right total knee arthroplasty. SECONDARY DIAGNOSES: 1. Morbid obesity. 2. Diabetes. 3. Hypertension. 4. Osteoarthritis. 5. Chronic obstructive pulmonary disease. 6. Spinal stenosis. 7. Cervical spondylosis. 8. Peripheral neuropathy. 9. Hernia. CONSULTATION: Physical Therapy, Occupational Therapy, and Medicine. HISTORY OF PRESENT ILLNESS: Mr. Garcia is a 71-year-old male who presents to the clinic with ongoing right knee pain for several years due to severe end- stage osteoarthritis. He has failed conservative measures and therefore elected to undergo a right total knee arthroplasty with Dr. Valverde on 08/13/16. HOSPITAL COURSE: Mr. Garcia was admitted to [facility] on 08/13. He underwent a right total knee arthroplasty. Postoperatively, he recovered on the short-stay surgical unit. On postop day#1, his Freeman catheter was removed and he is able to urinate on his own. He advanced to a regular diet without difficulty and his pain was controlled with p.o. Percocet and he was restarted on his home medications. His labs and vitals remained stable. He was able to bear weight as tolerated on the right lower extremity. He advanced slowly with physical therapy and occupational therapy. His DVT prophylaxis was managed with Lovenox and Coumadin until he reached a therapeutic INR. By postop day#4, he was orthopedically and medically stable for discharge to home with visiting nursing services. PHYSICAL EXAMINATION: General: The patient is a 71-year-old male, in no acute distress, lying comfortably in hospital bed, alert and oriented x3. Right lower extremity, well healed and surgical incision over the right knee with no erythema, purulent drainage or signs of infection. A clean dressing was applied. Active ankle dorsiflexion and plantarflexion. +2 dorsalis pedis pulse. Sensation intact to light touch distally. LABORATORY DATA: On day of discharge, hemoglobin 12, hematocrit 37, INR 1.36. Postop radiographs of the right knee demonstrate right total knee arthroplasty with satisfactory prosthesis placement and no acute bony abnormalities. DISCHARGE CONDITION: Stable. DISCHARGE MEDICATIONS: Medications on discharge to include: Docusate capsule 100 mg p.o. up to 3 times a day as needed for constipation. DICTATION ENDS ABRUPTLY HERE AIDEN MORAN [id number]/[facility] #: [id number] MTDDavid
--- NOTE | 2016-08-18 01:18 | DS ---
DICTATION ENDS ABRUPTLY - FULLY REDICTATED DISCHARGE SUMMARY: DATE OF ADMISSION: 08/13/16 DATE OF DISCHARGE: 08/17/16 PROVIDER: Tiara Valverde MD ADMITTING DIAGNOSIS: Severe right knee osteoarthritis. PROCEDURE: Right total knee arthroplasty. SECONDARY DIAGNOSES: 1. Morbid obesity. 2. Diabetes. 3. Hypertension. 4. Osteoarthritis. 5. Chronic obstructive pulmonary disease. 6. Spinal stenosis. 7. Cervical spondylosis. 8. Peripheral neuropathy. 9. Hernia. CONSULTATIONS: Physical Therapy, Occupational Therapy, and Medicine. HISTORY OF PRESENT ILLNESS: Mr. Garcia is a 71-year-old gentleman who presented with ongoing right knee pain due to severe osteoarthritis. He has failed conservative measures and therefore has elected to undergo a right total knee arthroplasty with Dr. Valverde. HOSPITAL COURSE: Mr. Garcia was admitted to [facility] on 08/13. He underwent a right total knee arthroplasty. Postoperatively, he recovered on the short stay surgical unit. On postop day 1, his Freeman catheter was removed and he was able to urinate on his own. He was advanced to a regular diet without difficulty and his pain was controlled with p.o. Percocet and was restarted on home medications. His labs and vitals remained stable. He was able to weight bear as tolerated on the right lower extremity. He advanced slowly with physical therapy and occupational therapy. His DVT prophylaxis was managed with Lovenox and Coumadin until he reached a therapeutic INR. On postoperative day 4, he was orthopedically and medically stable for discharge to home with visiting nursing services. PHYSICAL EXAMINATION: General: Well developed, well nourished male, in no acute distress. Right lower extremity: Well healing surgical incision with no signs of infection. Dry sterile dressing was applied. Active ankle dorsiflexion and plantar flexion. Cast is soft and nontender. +2 dorsalis pedis pulse. Sensation is intact to light touch distally. LAB DATA: On the day of discharge, hemoglobin 12, hematocrit 37, INR 1.36. RADIOGRAPHS: Postop radiograph of the right knee demonstrate a right total knee arthroplasty with satisfactory placement. DISCHARGE MEDICATION: New medications on discharge to include: 1. Coumadin 2 mg tablets by mouth daily as directed by provider. 2. Docusate capsule 100 mg up to 3 times a day as needed for constipation. 3. Percocet 5/325 one to two tabs every 4 hours as needed for pain. Home medications continued on discharge to include: 1. Losartan mg by mouth every morning. 2. Synthroid 112 mcg by mouth daily. 3. Insulin glargine 80 units subcu twice a day. 4. Avodart 0.5 mg one by mouth every night. 5. Aspirin 81 mg by mouth every morning. It will be held until Coumadin is over. 6. Clonidine 0.3 mg by mouth twice a day. 7. Albuterol inhaler 2 puffs every 4 hours as needed. 8. Saline nasal spray 1 spray both nares every 4 hours as needed. 9. Simethicone 80 mg by mouth 4 times a day as needed. 10. NovoLog insulin 12 units subcu. See instructions. 11. Charcoal activated capsules 260 mg 1 to 2 capsules by mouth twice a day. DICTATION ENDS ABRUPTLY HERE AIDEN MORAN [id number]/[facility] #: [id number] NAKUL
--- NOTE | 2016-08-18 14:17 | DS ---
DISCHARGE SUMMARY: DATE OF ADMISSION: 08/13/16 DATE OF DISCHARGE: 08/17/16 PROVIDER: Dr. Tiara Valverde. ADMISSION DIAGNOSIS: Severe right knee osteoarthritis. PROCEDURE: Right total knee arthroplasty. SECONDARY DIAGNOSES: 1. Morbid obesity. 2. Diabetes. 3. Hypertension. 4. Osteoarthritis. 5. Chronic obstructive pulmonary disease. 6. Spinal stenosis. 7. Cervical spondylosis. 8. Peripheral neuropathy. 9. Hernia. CONSULTATIONS: Physical Therapy, Occupational Therapy, and Medicine. HISTORY OF PRESENT ILLNESS: Mr. Garcia is a 71-year-old male who presents to the clinic for ongoing right knee pain due to severe end-stage right knee osteoarthritis. The patient has failed conservative measures and therefore agreed to undergo a right total knee arthroplasty with Dr. Valverde. HOSPITAL COURSE: Mr. Garcia was admitted to [facility] on 08/13. He underwent a right total knee arthroplasty. Postoperatively, he recovered on the short-stay surgical unit. Postop day 1, his Freeman was removed and he was able to urinate on his own. He was advanced to a regular diet without difficulty and his pain was controlled with Percocet and he was restarted on his home medications. His labs and vitals remained stable. He was able to weight bear as tolerated on the right lower extremity. He advanced slowly with physical therapy and occupational therapy. His DVT prophylaxis was managed with Lovenox and Coumadin until he reached a therapeutic INR. Postop day 4, he was orthopedically and medically stable for discharge to home with visiting nursing services. PREOP PHYSICAL EXAMINATION: General: A 71-year-old male, in no acute distress. Alert and oriented x3. Right lower extremity: Surgical incision is healing well with no signs of infection. A dry sterile dressing was applied. He has ankle dorsiflexion and plantar flexion. +2 DP pulse. Sensation is intact to light touch distally. LABORATORY DATA: Labs on the day of discharge, hemoglobin 12, hematocrit 37. INR 1.37. DISCHARGE MEDICATIONS: New medications on discharge to include: 1. Colace 100 mg capsules, take up to 3 times a day as needed for constipation. 2. Warfarin 2 mg by mouth daily, take as directed. 3. Percocet 5/325 one or two tabs every 4 to 6 hours as needed for pain. Home medications continued on discharge to include: 1. Losartan 100 mg by mouth every morning. 2. Levothyroxine 112 mcg by mouth daily. 3. Insulin glargine 80 units subcu twice a day. 4. Avodart 0.5 mg 1 by mouth every night. 5. Aspirin 81 mg p.o. every morning. This will be stopped until Coumadin ends. 6. Clonidine 0.3 mg p.o. twice a day. 7. Albuterol inhaler 2 puffs every 4 hours as needed. 8. Saline nasal spray, 1 spray both nares every 4 hours. 9. Gas-X 80 mg p.o. 4 times a day as needed. 10. NovoLog 12 units subcu; see instructions. 11. Activated charcoal 260 mg capsule 1 or 2 tabs by mouth twice a day. 12. Acetaminophen 50 mg 1 to 2 tabs p.o. twice a day as needed. CONDITION ON DISCHARGE: Stable. DISCHARGE INSTRUCTIONS: Mr. Garcia is a 71-year-old gentleman postop day 4 status post right total knee arthroplasty, which was uncomplicated. He is orthopedically and medically stable for discharge to home with VNS services. His labs and vitals were stable. He was restarted on his home medications. He will take 8 mg of Coumadin tonight and tomorrow and will re-draw on Friday. He will have INR draws on Mondays and and PT at home twice a week. He is weight bearing as tolerated on the right lower extremity. He will take Percocet for pain control and Colace up to 3 times a day for constipation. He will follow up with Dr. Valverde in 10 to 14 days for incision check and suture removal. He may shower postop day 4, but was instructed not to submerge the wound in water. He is to keep his dressings clean, dry, and intact. The VNS nurses may change the dressing. He is instructed to go to the ER immediately if he develops chest pain, shortness of breath, fever greater than 101.5, or calf pain or tenderness. The patient is to call the office with any questions or concerns. AIDEN MORAN [id number]/[facility] #: [id number] NAKUL
== END 2016-08-17 12:30 | disposition home health service (06) | DRG 470 ==
LOC: AA 11:22 → SSU 20:43
PROVIDERS: ADMIT Orthopaedic Surgery Adult Reconstructive Orthopaedic Surgery; ATTEND Orthopaedic Surgery Adult Reconstructive Orthopaedic Surgery
PROC: 0SRC0J9 Replacement of Right Knee Joint with Synthetic Substitute, Cemented, Open Approach (ICD-10-PCS; principal; 2016-08-13 14:30)
DX: M17.11 Unilateral primary osteoarthritis, right knee (principal); E11.42 Type 2 diabetes mellitus with diabetic polyneuropathy; E11.65 Type 2 diabetes mellitus with hyperglycemia; Z68.41 Body mass index [BMI] 40.0-44.9, adult; E66.01 Morbid (severe) obesity due to excess calories; M48.00 Spinal stenosis, site unspecified; Z79.01 Long term (current) use of anticoagulants; Z79.4 Long term (current) use of insulin; Z96.652 Presence of left artificial knee joint; Z98.1 Arthrodesis status; Z88.2 Allergy status to sulfonamides; Z88.8 Allergy status to other drugs, medicaments and biological substances; Z87.891 Personal history of nicotine dependence; M25.761 Osteophyte, right knee; E03.9 Hypothyroidism, unspecified; Z88.5 Allergy status to narcotic agent; J44.9 Chronic obstructive pulmonary disease, unspecified
CPT/HCPCS: 36415; 80048; 85014; 85018; 85025; 85610; 88305; 88311; 94760; A9270-GY; C1776; J0690; J1650; J2250; J2270; J2704; J2765

== ENCOUNTER → 2017-02-07 10:12 | Emergency (ER) | payer MEDICARE, BC ==
[~2017-02-07 10:12] MED LIST changes: -Buffered Lidocaine 1% SYR 3ML* 3 ML/SYR SYRINGE INTRADERM ONE; -Famotidine IV* 10 MG/ML 2 ML (20 mg) IV ONE; +Furosemide IV* 10 MG/ML VIAL (40 MG) IV ONE; +Iodixanol 320 (CONTRAST) 100 ML SDV IV ONE; +Iohexol 350* (CONTRAST) 500 ML MDV IV ONE; -Metoclopramide IV* 5 MG/ML 2 ML VIAL IV SLOW PU ONE
--- NOTE | 2017-02-07 11:43 | RAD ---
HISTORY: Shortness of breath COMPARISONS: April 21, 2016 VIEWS: 2: Frontal and lateral views of the chest. FINDINGS: CARDIOMEDIASTINAL SILHOUETTE: The cardiac silhouette is enlarged. The cardiomediastinal silhouette is otherwise normal. ZEN: The zen are normal. PLEURA: The costophrenic angles are sharp. No pleural abnormalities are noted. LUNG PARENCHYMA: The lungs are clear. ABDOMEN: The upper abdomen is clear. There is no subphrenic gas. BONES AND SOFT TISSUES: The patient is status post anterior cervical fusion OTHER: None. IMPRESSION: CARDIOMEGALY
[2017-02-07 11:47] LABS: Hematocrit 46 % (42-52); Hemoglobin 14.9 g/dl (14.0-18.0); Mean Corpuscular HGB Conc 32 g/dl (31-36); Mean Corpuscular Hemoglobin 29 pg (27-31); Mean Corpuscular Volume 90 fL (80-94); Mean Platelet Volume 9 um3 (7.4-10.4); Red Blood Count 5.14 10^6/ul (4.0-5.4); Red Cell Distribution Width 14 % (10.5-15); White Blood Count 8.6 10^3/ul (3.5-10.8)
[2017-02-07 12:06] LABS: Albumin 3.9 g/dL (3.2-5.2); BUN/Creatinine Ratio 17.5 (8-20); Calcium 9.7 mg/dL (8.6-10.3); EGFR African American 122.9 (>60); EGFR Non-African American 95.6 (>60); Globulin 3.8 g/dL (2-4); Potassium 3.8 mmol/L (3.5-5.0); Total Bilirubin 0.7 mg/dL (0.2-1.0); Total Protein 7.7 g/dL (6.4-8.9)
[2017-02-07 12:08] LABS: Troponin I 0.01 ng/mL (<0.04)
--- NOTE | 2017-02-07 14:45 | RAD ---
Indication: Shortness of breath, increased troponin. Contrast: Administered 95.9 ml of VISAPAQUE 320 mgi/ml CTA of the chest was performed after IV contrast administration. Coronal and sagittal The pulmonary arterial tree is well opacified. There are no filling defects present to suggest. Right basilar atelectasis is noted. Small prevascular space lymph nodes are noted measuring up to 7 mm. AP window lymph nodes noted in the 9 mm coronary artery calcifications are noted. The heart demonstrates no pericardial lesion. The trachea and major bronchi appear patent. No alveolar consolidation is noted. No pleural fluid is identified. There is a nodule in the left upper lobe which appears to adjacent nodules measuring 8 and 6 mm. When compared to previous exam of these were present previously. They appear similar in appearance. Scarring is noted right lower lobe posteriorly. No pleural fluid is identified. There is hepatic steatosis noted. IMPRESSION: No definite evidence of pulmonary embolus. There are 2 adjacent nodules in left upper lobe which were likely present on previous exam of February 03, 2016. They measure 8 mm and 5 mm. These are likely not significantly changed however further follow-up is suggested. Scarring and atelectasis in right lung base is noted. Hepatic steatosis is present.
[2017-02-07 15:26] LABS: C Reactive Protein 9.55 mg/L (< 5.00)
[2017-02-07 16:08] VITALS: BP 149/59
--- NOTE | 2017-02-07 16:22 | ED ---
Yamel Daugherty Auryana, scribed for Tesfaye Winkler MD on 02/07/17 at 1045 . Respiratory - HPI Summary HPI Summary: 71 year old male BIB EMS with SOB. He reports CP earlier today (none presently) and weakness. Patient states he has chronic LE edema s/p knee repair. He denies any diaphoresis, nausea, vomiting, or cough. PMHx is significant for morbid obesity, COPD, asthma, sleep apnea, HTN, and HLD. - History of Current Complaint Chief Complaint: EDShortnessOfBreath Stated Complaint: SHORT OF BREATH Time Seen by Provider: 02/07/17 10:42 Hx Obtained From: Patient Onset/Duration: Lasting Days, Worse Since - today Current Severity: None Pain Intensity: 0 Associated Signs and Symptoms: SOB, Chest Pain - earlier today, not currently present, Edema - Allergy/Home Medications Allergies/Adverse Reactions: Allergies Allergy/AdvReac Type Severity Reaction Status Date / Time Amlodipine Allergy Shortness Verified 08/13/16 12:22 of Breath Amoxicillin Allergy Unknown Verified 08/13/16 12:22 Reaction Details Atenolol Allergy Shortness Verified 08/13/16 12:22 of Breath Baclofen Allergy Unknown Verified 08/13/16 12:22 Reaction Details Enalapril Allergy Shortness Verified 08/13/16 12:22 of Breath Esomeprazole Allergy Unknown Verified 08/13/16 12:22 Reaction Details Glipizide Allergy Unknown Verified 08/13/16 12:22 Reaction Details Montelukast [From Singulair] Allergy Unknown Verified 08/13/16 12:22 Reaction Details Oxybutynin Allergy Unknown Verified 08/13/16 12:22 Reaction Details Paroxetine [From Paxil] Allergy Unknown Verified 08/13/16 12:22 Reaction Details Zolpidem [From Ambien] Allergy Unknown Verified 08/13/16 12:22 Reaction Details Atorvastatin [From Lipitor] AdvReac Severe musculoskel Verified 08/13/16 12:22 etal Pantoprazole AdvReac Severe musculoskel Verified 08/13/16 12:22 etal Simvastatin AdvReac Severe musculoskel Verified 08/13/16 12:22 etal Hydrochlorothiazide AdvReac Intermediate increases Verified 08/13/16 12:22 blood sugars Sulfa Antibiotics AdvReac Unknown unkno Verified 08/13/16 12:22 PMH/Surg Hx/FS Hx/Imm Hx Endocrine/Hematology History: Reports: Hx Diabetes, Hx Thyroid Disease Cardiovascular History: Reports: Hx Hypercholesterolemia, Hx Hypertension Denies: Hx Angina, Hx Congestive Heart Failure, Hx Coronary Artery Disease, Hx Myocardial Infarction, Hx Pacemaker/ICD, Hx Valvular Heart Disease Respiratory History: Reports: Hx Asthma - A CHILD(prior record), Hx Chronic Obstructive Pulmonary Disease (COPD), Hx Pneumonia, Hx Sleep Apnea GI History: Reports: Hx Irritable Bowel, Other GI Disorders - OCC STOMACH PAIN, NEG WORKUP PER DR GUZMAN; IBS per [place] Denies: Hx Ulcer History: Reports: Other Problems/Disorders - BPH Denies: Hx Renal Disease Musculoskeletal History: Reports: Hx Arthritis, Other Musculoskeletal History - CERVICAL SPONDYLOSIS Sensory History: Reports: Hx Contacts or Glasses, Hx Deafness - [place] not deaf Denies: Hx Hearing Aid Opthamlomology History: Reports: Hx Contacts or Glasses Neurological History: Reports: Other Neuro Impairments/Disorders - BALANCE ISSUES, USES WALKER(states trouble seeing at night) Psychiatric History: Denies: Hx Panic Disorder - Surgical History Surgery Procedure, Year, and Place: lt knee replacement 2012, lt great toe REATTACHED 1970, [facility]. 08/25/15 ANTERIOR CERVICAL DISC AND FUSION C4-5-6 Hx Anesthesia Reactions: No Infectious Disease History: Denies: Hx Clostridium Difficile, Hx Hepatitis, Hx Human Immunodeficiency Virus (HIV), Hx of Known/Suspected MRSA, Hx Shingles, Hx Tuberculosis, Hx Known/ Suspected VRE, Hx Known/Suspected VRSA, History Other Infectious Disease, Traveled Outside the [place] in Last 30 Days - Family History Known Family History: Positive: Cardiac Disease - Social History Occupation: Retired Lives: With Family - Alcohol Use: None Hx Substance Use: No Substance Use Type: Reports: None Hx Tobacco Use: Yes Smoking Status (MU): Former Smoker Length of Time of Smoking/Using Tobacco: 15 YRS Have You Smoked in the Last Year: No Review of Systems Constitutional: Negative Negative: Skin Diaphoresis Eyes: Negative ENT: Negative Positive: Chest Pain - earlier today, not currently present Positive: Shortness Of Breath. Negative: Cough Gastrointestinal: Negative Genitourinary: Negative Positive: Other - weakness Skin: Negative Neurological: Negative Psychological: Normal All Other Systems Reviewed And Are Negative: Yes Physical Exam - Summary Physical Exam Summary: VITAL SIGNS: Reviewed. GENERAL: Patient is a well-developed and obese male who is lying comfortable in the stretcher. Patient is not in any acute respiratory distress. HEAD AND FACE: No signs of trauma. No ecchymosis, hematomas or skull depressions. No sinus tenderness. EYES: PERRLA, EOMI x 2, No injected conjunctiva, no nystagmus. EARS: Hearing grossly intact. Ear canals and tympanic membranes are within normal limits. MOUTH: Oropharynx within normal limits. NECK: Supple, trachea is midline, no adenopathy, no JVD, no carotid bruit, no c- spine tenderness, neck with full ROM. CHEST: Symmetric, no tenderness at palpation LUNGS: No respiratory distress. Patient speaks in full sentences. Clear to auscultation bilaterally. No wheezing or crackles. CVS: Regular rate and rhythm, S1 and S2 present, no murmurs or gallops appreciated. ABDOMEN: Soft, non-tender. No signs of distention. No rebound no guarding, and no masses palpated. Bowel sounds are normal. EXTREMITIES: FROM in all major joints, no cyanosis or clubbing. Bilateral lower extremities edema 4+. NEURO: Alert and oriented x 3. No acute neurological deficits. Speech is normal and follows commands. SKIN: Dry and warm. Triage Information Reviewed: Yes Vital Signs On Initial Exam: Initial Vitals Temp Pulse Resp BP Pulse Ox 99.1 F 116 22 170/69 92 02/07/17 10:14 02/07/17 10:14 02/07/17 10:14 02/07/17 10:14 02/07/17 10:14 Vital Signs Reviewed: Yes Diagnostics - Vital Signs Vital Signs Temp Pulse Resp BP Pulse Ox 02/07/17 10: 99.1 F 116 22 170/69 92 - Laboratory Lab Results: Lab Results 02/07/17 02/07/17 02/07/17 Range/Units 11:25 11:25 11:25 WBC 8.6 (3.5-10.8) 10^3/ul RBC 5.14 (4.0-5.4) 10^6/ul Hgb 14.9 (14.0-18.0) g/dl Hct 46 (42-52) % MCV 90 (80-94) fL MCH 29 (27-31) pg MCHC 32 (31-36) g/dl RDW 14 (10.5-15) % Plt Count 145 L (150-450) 10^3/ul MPV 9 (7.4-10.4) um3 Neut % (Auto) 80.1 (38-83) % Lymph % (Auto) 11.4 L (25-47) % [place]orne % (Auto) 5.5 (1-9) % Eos % (Auto) 1.2 (0-6) % Baso % (Auto) 1.8 (0-2) % Absolute Neuts (auto) 6.9 (1.5-7.7) 10^3/ul Absolute Lymphs (auto) 1.0 (1.0-4.8) 10^3/ul Absolute Monos (auto) 0.5 (0-0.8) 10^3/ul Absolute Eos (auto) 0.1 (0-0.6) 10^3/ul Absolute Basos (auto) 0.2 (0-0.2) 10^3/ul Absolute Nucleated RBC 0 10^3/ul Nucleated RBC % 0 INR (Anticoag Therapy) (0.89-1.11) APTT (26.0-36.3) seconds D-Dimer, Quantitative (Less Than 230) ng/mL Sodium 135 (133-145) mmol/L Potassium 3.8 (3.5-5.0) mmol/L Chloride 100 L (101-111) mmol/L Carbon Dioxide 29 (22-32) mmol/L Anion Gap 6 (2-11) mmol/L BUN 14 (6-24) mg/dL Creatinine 0.80 (0.67-1.17) mg/dL Est GFR ( Amer) 122.9 (>60) Est GFR (Non-Af Amer) 95.6 (>60) BUN/Creatinine Ratio 17.5 (8-20) Glucose 149 H (70-100) mg/dL Lactic Acid 1.7 (0.5-2.0) mmol/L Calcium 9.7 (8.6-10.3) mg/dL Total Bilirubin 0.70 (0.2-1.0) mg/dL AST 18 (13-39) U/L ALT 26 (7-52) U/L Alkaline Phosphatase 72 (34-104) U/L Total Creatine Kinase 152 (10-223) U/L CK-MB (CK-2) 3.2 (0.6-6.3) ng/mL Troponin I 0.01 (<0.04) ng/mL C-Reactive Protein 9.55 H (< 5.00) mg/L B-Natriuretic Peptide ( - 100) pg/mL Total Protein 7.7 (6.4-8.9) g/dL Albumin 3.9 (3.2-5.2) g/dL Globulin 3.8 (2-4) g/dL Albumin/Globulin Ratio 1.0 (1-3) 02/07/17 02/07/17 Range/Units 11:25 11:25 WBC (3.5-10.8) 10^3/ul RBC (4.0-5.4) 10^6/ul Hgb (14.0-18.0) g/dl Hct (42-52) % MCV (80-94) fL MCH (27-31) pg MCHC (31-36) g/dl RDW (10.5-15) % Plt Count (150-450) 10^3/ul MPV (7.4-10.4) um3 Neut % (Auto) (38-83) % Lymph % (Auto) (25-47) % [place]orne % (Auto) (1-9) % Eos % (Auto) (0-6) % Baso % (Auto) (0-2) % Absolute Neuts (auto) (1.5-7.7) 10^3/ul Absolute Lymphs (auto) (1.0-4.8) 10^3/ul Absolute Monos (auto) (0-0.8) 10^3/ul Absolute Eos (auto) (0-0.6) 10^3/ul Absolute Basos (auto) (0-0.2) 10^3/ul Absolute Nucleated RBC 10^3/ul Nucleated RBC % INR (Anticoag Therapy) 0.94 (0.89-1.11) APTT 29.8 (26.0-36.3) seconds D-Dimer, Quantitative 327 H (Less Than 230) ng/mL Sodium (133-145) mmol/L Potassium (3.5-5.0) mmol/L Chloride (101-111) mmol/L Carbon Dioxide (22-32) mmol/L Anion Gap (2-11) mmol/L BUN (6-24) mg/dL Creatinine (0.67-1.17) mg/dL Est GFR ( Amer) (>60) Est GFR (Non-Af Amer) (>60) BUN/Creatinine Ratio (8-20) Glucose (70-100) mg/dL Lactic Acid (0.5-2.0) mmol/L Calcium (8.6-10.3) mg/dL Total Bilirubin (0.2-1.0) mg/dL AST (13-39) U/L ALT (7-52) U/L Alkaline Phosphatase (34-104) U/L Total Creatine Kinase (10-223) U/L CK-MB (CK-2) (0.6-6.3) ng/mL Troponin I (<0.04) ng/mL C-Reactive Protein (< 5.00) mg/L B-Natriuretic Peptide 21 ( - 100) pg/mL Total Protein (6.4-8.9) g/dL Albumin (3.2-5.2) g/dL Globulin (2-4) g/dL Albumin/Globulin Ratio (1-3) Result Diagrams: 02/07/17 11:25 02/07/17 11:25 Lab Statement: Any lab studies that have been ordered have been reviewed, and results considered in the medical decision making process. - Radiology CXR Xray Interpretation: Positive (See Comments) - IMPRESSION: CARDIOMEGALY Radiology Interpretation Completed By: Radiologist - CT CTA chest CT Interpretation: Positive (See Comments) CT Interpretation Completed By: Radiologist - IMPRESSION: No definite evidence of pulmonary embolus. There are 2 adjacent nodules in left upper lobe which were likely present on previous exam of February 03, 2016. They measure 8 mm and 5 mm. These are likely not significantly changed however further follow-up is suggested. Scarring and atelectasis in right lung base is noted. Hepatic steatosis is present. - EKG 10:37 EKG Interpretation: sinus tachycardia @ 109 Bpm EKG Comparison: No Significant Change - 04/22/16 Disposition - Course Assessment/Plan: 71 year old male BIB EMS with SOB. He reports CP earlier today (none presently) and weakness. Patient states he has chronic LE edema s/p knee repair. He denies any diaphoresis, nausea, vomiting, or cough. PMHx is significant for morbid obesity, COPD, asthma, sleep apnea, HTN, and HLD. In the ED course an IV access was obtained. Patient was placed in a personnel monitor. Patient was started with Lasix due to b/l LE edema. However refused the Lasix. Labs within normal limits except for. Troponin #1: 0.01. EKG shows sinus tachycardia at 109 BPM with incomplete RBBB and w/o ST elevations. CXR impression: Cardiomegaly. Chest CT IMPRESSION: No definite evidence of pulmonary embolism. There are 2 adjacent nodules in left upper lobe which were likely present on previous exam of February 03, 2016. They measure 8 mm and 5 mm. These are likely not significantly changed however further follow-up is suggested. Scarring and atelectasis in right lung base is noted. Hepatic steatosis is present. In the ED course he accepted to get the Lasix. I offered to admit patient for diuresis but patient refused. H understands the risk of benefits and risk of admission but he refuses. 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 agrees with plan. I will give a Rx for lasix. He was recommended to return to the ED if symptoms worsen. All questions were answered at patient satisfaction. There were no further complaints or concerns. Lung exam before discharge: CTA B/L. Good air exchange. No wheezing or crackles heard. CVS: S1 and S2 present. No murmurs appreciated. Patient is alert and oriented x 3. Patient is hemodynamically stable. Patient will be discharged home with follow up PCP in the next 2-3 day - Differential Dx - Cardiopulmonary Differential Diagnoses - Cardiopulmonary: CAD, CHF, Lower Resp Infection - Diagnoses Provider Diagnoses: Bilateral leg edema, Anasarca, Pulmonary nodule Discharge - Discharge Plan Condition: Stable Disposition: HOME Prescriptions: Furosemide TAB* [Lasix TAB*] 40 mg PO DAILY #10 tab Patient Education Materials: Leg Edema (ED), Edema (ED) Referrals: Lito Sosa MD [Primary Care Provider] - 2 Days The documentation as recorded by the Yamel masterson Auryana accurately reflects the service I personally performed and the decisions made by Peterson yung Walter, MD.
== END | disposition home or self-care (01) ==
LOC: ED 10:12
DX: R91.1 Solitary pulmonary nodule (principal); R07.9 Chest pain, unspecified; R06.02 Shortness of breath; R53.1 Weakness; Z87.891 Personal history of nicotine dependence; R60.1 Generalized edema
CPT/HCPCS: 36415; 71020; 71275; 80053; 82550; 82553; 83605; 83880; 84484; 85025; 85379; 85610; 85730; 86140; 87040; 93005; 99284; J1940; Q9967

== ENCOUNTER 2017-04-17 06:28 | Inpatient (IN) | payer MEDICARE, BC ==
[~2017-04-17 06:28] MED LIST changes: +Buffered Lidocaine 0.9% SYRIN* 5 ML/SYR SYRINGE INTRADERM ONE; -Furosemide IV* 10 MG/ML VIAL (40 MG) IV ONE; -Iodixanol 320 (CONTRAST) 100 ML SDV IV ONE; -Iohexol 350* (CONTRAST) 500 ML MDV IV ONE
[2017-04-17] MEDS ORDERED: ceFAZolin 1 GM in Dextrose (*) 1 GM/50 ML BAG IVPB ONE (06:47)
[2017-04-17] MEDS ORDERED: Buffered Lidocaine 0.9% SYRIN* 5 ML/SYR SYRINGE ONE (06:47)
[2017-04-17] MEDS ORDERED: ceFAZolin 2 GM PREMIX (*) 50 ML IVPB ONE (06:47)
[2017-04-17] MEDS ORDERED: Midazolam* 1 MG/ML 2 ML VIAL (2 MG) ONE ×2 (07:23→08:15)
[2017-04-17] MEDS ORDERED: Thrombin 5,000 UNITS* 1 APPLIC KIT - topical use - TOPICAL ONE (07:27)
[2017-04-17] MEDS ORDERED: Bacitracin IV* 50,000 UNITS INJ ONE (07:27)
[2017-04-17] MEDS ORDERED: Lidocaine 1% MPF wEPI 200,000* 30 ML SDV ONE (07:27)
[2017-04-17] MEDS ORDERED: Dexamethasone IV* 4 MG/ML 1 ML (4 MG) ONE (08:01)
[2017-04-17] MEDS ORDERED: Famotidine IV* 10 MG/ML 2 ML (20 mg) ONE (08:01)
[2017-04-17] MEDS ORDERED: Lidocaine 2% PF * 5 ML VIAL ONE (08:01)
[2017-04-17] MEDS ORDERED: Propofol* 10 MG/ML 20 ML BTL IV PUSH ONE ×2 (08:01→09:44)
[2017-04-17] MEDS ORDERED: Cisatracurium* 2 MG/ML MDV 5 ML ONE ×2 (08:04→10:09)
[2017-04-17] MEDS ORDERED: fentaNYL* 50 MCG/ML 2 ML VIAL (100 MCG VIAL) ONE ×2 (08:16→10:32)
[2017-04-17] MEDS ORDERED: Desflurane* 240 ML INH ONE (08:33)
[2017-04-17] MEDS ORDERED: Phenylephrine IV* 40 MCG/ML 10 ML SYRINGE ONE (08:33)
[2017-04-17] MEDS ORDERED: DiMENhydriNATE IV* 50 MG/ML VIAL IV PUSH PRN (08:42)
[2017-04-17] MEDS ORDERED: HYDROmorphone INJ* 1 MG/ML CARPUJECT SYRINGE IV PRN (08:42)
[2017-04-17] MEDS ORDERED: HYDROcodone/ACETAMIN 5-325 MG* 1 TAB PO PRN (08:42)
[2017-04-17] MEDS ORDERED: fentaNYL* 50 MCG/ML 2 ML VIAL (100 MCG VIAL) IV PRN (08:42)
[2017-04-17] MEDS ORDERED: Acetaminophen TAB* 325 MG PO PRN ×2 (08:42→10:43)
[2017-04-17] MEDS ORDERED: Ondansetron INJ* 2 MG/ML VIAL IV PRN ×2 (08:42→10:43)
[2017-04-17] MEDS ORDERED: EPHEDrine (Pressors)* 50 MG/ML VIAL ONE (09:01)
[2017-04-17] MEDS ORDERED: Hetastarch in NS* 500 ML IV ONE (09:01)
[2017-04-17] MEDS ORDERED: Phenylephrine INJ* 10 MG/ML 1 ML VIAL (10 MG) ONE (09:05)
[2017-04-17] MEDS ORDERED: Ondansetron INJ* 2 MG/ML VIAL ONE (10:34)
[2017-04-17] MEDS ORDERED: Docusate CAP* 100 MG PO PRN (10:44)
[2017-04-17] MEDS ORDERED: Aspirin EC Low Dose* 81 MG TAB.EC PO SCH (11:00)
[2017-04-17] MEDS ORDERED: HYDROcodone/ACETAMIN 5-325 MG* 1 TAB ONE (11:42)
[2017-04-17] MEDS ORDERED: Levalbuterol HFA INHALER* 1 PUFF MDI ONE (12:43)
--- NOTE | 2017-04-17 12:51 | RAD ---
HISTORY: Decompressive laminectomy COMPARISONS: March 20, 2017 MRI VIEWS: Portable intraoperative view of the lumbar spine performed for localization during spinal surgery at 8:31 AM. FINDINGS: A metallic probe is noted opposite of L3-L4, and from L5 as the last lumbar type vertebral body. IMPRESSION: LIMITED PORTABLE VIEW OF THE SPINE FOR LOCALIZATION DURING SPINAL SURGERY
[2017-04-17] MEDS ORDERED: Dextrose 50% Syringe 50 ML* 25 GM/50 ML SYRINGE IV PUSH PRN (14:59)
[2017-04-17] MEDS: Finasteride TAB* 5 MG PO SCH (17:58)
[2017-04-17] MEDS: Cetirizine* 10 MG TAB PO SCH (17:58)
[2017-04-17] MEDS: Insulin LISPRO* 1 UNITS UNIT SUBCUT SCH (17:58)
[2017-04-17] MEDS: HYDROcodone/ACETAMIN 5-325 MG* 1 TAB PO PRN (21:28)
[2017-04-17] MEDS: cloNIDine TAB* 0.1 MG PO SCH (21:29)
[2017-04-17] MEDS: Insulin GLARGINE(*) 1 UNITS UNIT SUBCUT SCH (21:29)
--- NOTE | 2017-04-17 22:00 | CONS ---
CC: Dr. Sosa; Dr. Benedict * CONSULTATION REPORT: DATE OF CONSULT: 04/17/17 PRIMARY CARE PROVIDER: Dr. Sosa. ATTENDING PHYSICIAN WHILE IN THE HOSPITAL: Dr. Omar Garcia (report dictated by Humphrey Alvarez NP). REQUESTING PHYSICIAN FOR CONSULT: Dr. Benedict. REASON FOR MEDICAL CONSULT: Evaluation and medical management of comorbid medical conditions. HISTORY OF PRESENT ILLNESS: Mr. Garcia is a 71-year-old male patient with multiple medical problems, who presented to Dr. Benedict's services for progressive worsening right lower extremity weakness, was found to have significant stenosis at L2-3, L3-4, L4-5. It was felt that he would benefit from an elective decompressive laminectomy and it was felt that he would benefit from a decompressive surgery because of the worsening weakness and pain that he was having in his back. He underwent the procedure today. He was evaluated in the postoperative setting. He says he is feeling well. He still has some significant weakness in that right leg. He denies having any chest pain. He denies having any shortness of breath. He says that he is not having any abdominal discomfort. No nausea. He says he has not been vomiting. He denies having any trouble with urination. He says that he does feel lightheaded. He feels little tired, but because of his medical complexity, we were asked to evaluate in consult. PAST MEDICAL HISTORY: Significant for: 1. Diabetes. 2. Arthritis. 3. Hypertension. 4. Obesity. 5. Hyperlipidemia. PAST SURGICAL HISTORY: 1. He has had a left total knee replacement and a right total knee replacement. 2. He has had an anterior cervical diskectomy and fusion. 3. He has had a laminectomy done today. 4. He has had a laparoscopic cholecystectomy. MEDICATIONS: His home medications include: 1. Gas-X 160 mg p.o. q.p.m. 2. Saline nasal spray, 1 spray both nares every 4 hours. 3. Loniten mg p.o. q.a.m. 4. Cozaar 100 mg a day. 5. Lantus 90 units subcu b.i.d. 6. Insulin aspart sliding scale as directed. 7. Lasix 20 mg a day. 8. Avodart 0.5 mg p.o. daily. 9. Colace 100 mg p.o. daily as needed. 10. Klonopin 0.3 mg p.o. b.i.d. 11. B12 1000 mcg p.o. daily. 12. Charcoal 1 to 2 capsules p.o. daily as needed. 13. Cetirizine 10 mg p.o. daily. 14. Aspirin 81 mg daily. 15. Tylenol 1000 mg p.o. daily. ALLERGIES TO MEDICATIONS: Include AMLODIPINE, ATENOLOL, SYNTHROID, SPIRONOLACTONE, AMOXICILLIN, BACLOFEN, ENALAPRIL, NEXIUM, GLIPIZIDE, SINGULAIR, OXYBUTYNIN, PAXIL, AMBIEN, LIPITOR, PROTONIX, SIMVASTATIN, HYDROCHLOROTHIAZIDE, SULFA ANTIBIOTICS, and BETA BLOCKERS. FAMILY HISTORY: His father had a history of an CT. His mother's history, he specifically denied the patient's mother having any heart disease or any cancers. SOCIAL HISTORY: He is a former smoker; he does not smoke anymore. He does not drink alcohol. He is , with children. Surrogate decision maker is his . REVIEW OF SYSTEMS: There is no documented fever. He denied having any significant weight change. There was no double vision. He denies having any ear discharge. There was no rhinorrhea. No sore throat. No thyroid enlargement. He denied having any chest pain. No orthopnea, no nocturnal dyspnea. There was no abdominal pain. There was no nausea, no vomiting. There was no dysuria, no frequency. There was no loss of consciousness. No pruritus and no skin ulceration. Review of 14 systems completed, all others negative. PHYSICAL EXAM: Reveals vital signs blood pressure , pulse 100, respirations 14, O2 sat 96%, temperature 97.2 General: At this time, Mr. Garcia is a 71- year-old male patient. He is sitting in the postop bed. He does not appear to be in any acute distress. HEENT: Head is atraumatic, normocephalic. Eyes: EOMs intact. Sclerae anicteric. Not pale. Throat: Oral mucosa appears to be dry. No oropharyngeal erythema. Neck: Supple. Heart: Sounds S1 and S2. Regular rate and rhythm. No murmurs, rubs, or gallops. Lungs were clear to auscultation bilaterally. No wheezes, rales, or rhonchi. Abdomen: Soft, flat. Bowel sounds hypoactive. Extremities: Pulses 2+ throughout. He has limited range of motion in the right lower extremity. He is unable to lift it off the bed. He does have dorsi and plantar flexion. He has sensation intact bilaterally. He did have 5/5 strength in the upper extremities. Neurologically, he is awake, alert, and oriented x3. No gross focal deficits. Skin is intact with exception he has an incision to his lumbar spine which is covered in ABD and is clean, dry, and intact. DIAGNOSTIC STUDIES/LAB DATA: Today revealed a WBC of 8.3, RBC of 5.32, hemoglobin 15.6, hematocrit of 47, platelet count 133. The INR was 0.94. Sodium 139, potassium 4.4, chloride 100, bicarb of 32, BUN 16, creatinine of 0.93. AST 18 and ALT 26. His calcium is 9.7. Urine was obtained; it was negative. Chest x-ray obtained showed mildly enlarged cardiac silhouette. He had an echo done in January of 2017, which showed EF of 50% to 55%. Old medical records reviewed. ASSESSMENT AND PLAN: Mr. Garcia is a 71-year-old male patient with multiple medical problems coming into the neurosurgical services today for an elective lumbar laminectomy. We were asked to evaluate in consult. Our recommendations at this point are: 1. Status post lumbar decompressive laminectomy. I will defer the management of this to Dr. Benedict and his team. 2. Diabetes. I will recommend putting him on sliding scale and continue his Lantus. 3. Hypertension. I will recommend continuing his minoxidil, his Klonopin, and I would also continue his Lasix as well. His blood pressure postop is in the 160s to 150s. 4. History of arthritis. Continue meds as prescribed. 5. History of hyperlipidemia. To follow with his primary. 6. History of benign prostatic hyperplasia. Continue Avodart. 7. Code status. He is full code. 8. DVT prophylaxis. Defer to primary team. 9. Fluids, electrolytes, and nutrition. I would recommend a heart-healthy diet. TIME SPENT: On the consult was 60 minutes, greater than half the time was spent [id number] with the patient obtaining my history and physical, the other half of the time spent going over the plan of care with the patient and implementing my plan of care. I did discuss the plan of care with my attending, Dr. Garcia; he is in agreement. HUMPHREY ALVAREZ NP [id number]/CPS #: [id number] NAKUL
[2017-04-18] MEDS: HYDROcodone/ACETAMIN 5-325 MG* 1 TAB PO PRN ×3 (06:13→21:41)
[2017-04-18 06:47] LABS: Hematocrit 39 % (42-52); Hemoglobin 13.1 g/dl (14.0-18.0); Mean Corpuscular HGB Conc 33 g/dl (31-36); Mean Corpuscular Hemoglobin 29 pg (27-31); Mean Corpuscular Volume 88 fL (80-94); Mean Platelet Volume 9 um3 (7.4-10.4); Red Blood Count 4.45 10^6/ul (4.0-5.4); Red Cell Distribution Width 14 % (10.5-15); White Blood Count 10.2 10^3/ul (3.5-10.8)
[2017-04-18 07:04] LABS: BUN/Creatinine Ratio 18.5 (8-20); Calcium 8.6 mg/dL (8.6-10.3); EGFR African American 86.9 (>60); EGFR Non-African American 67.6 (>60); Potassium 4.6 mmol/L (3.5-5.0)
--- NOTE | 2017-04-18 07:37 | PN ---
Progress Note - Progress Note Date of Service: 04/18/17 SOAP: Subjective: []POD # 1 Doing well Pre op leg pain better Objective: []Moderate drain output Neuro intact Assessment: []Satis post op course Plan: []Will convert to inpatient secondary to drain output
[2017-04-18] MEDS: Insulin LISPRO* 1 UNITS UNIT SUBCUT SCH ×3 (09:12→17:36)
[2017-04-18] MEDS: cloNIDine TAB* 0.1 MG PO SCH ×2 (09:14→21:41)
[2017-04-18] MEDS: Losartan TAB* 25 MG PO SCH (09:15)
[2017-04-18] MEDS: Furosemide TAB* 40 MG PO SCH (09:16)
[2017-04-18] MEDS: MinoXIDil TAB* 2.5 MG TAB PO SCH (09:17)
[2017-04-18] MEDS: Insulin GLARGINE(*) 1 UNITS UNIT SUBCUT SCH ×2 (09:19→21:43)
--- NOTE | 2017-04-18 17:35 | PN ---
Subjective Date of Service: 04/18/17 Interval History: Pt reports he feels "pretty good" today. He reports his pain is well controlled. No fevers or chills. No N/V. Reports good appetite. Has been ambulating to bathroom today. Objective Active Medications: Acetaminophen (Tylenol Tab*) 650 mg PO Q4H PRN PRN Reason: PAIN Hydrocodone Bitart/Acetaminophen ([place] 5-325 Tab*) 2 tab PO Q4H PRN PRN Reason: marked pain Last Admin: 04/18/17 14:29 Dose: 2 tab Cetirizine HCl (Zyrtec*) 10 mg PO QPM [facility] Last Admin: 04/17/17 17:58 Dose: 10 mg Clonidine HCl (Catapres Tab*) 0.3 mg PO BID [facility] Last Admin: 04/18/17 09:14 Dose: 0.3 mg Dextrose (D50w Syringe 50 Ml*) 12.5 gm IV PUSH .FOR FS < 60 - SS PRN PRN Reason: FS < 60 Docusate Sodium (Colace Cap*) 100 mg PO DAILY PRN PRN Reason: CONSTIPATION Finasteride (Proscar Tab*) 5 mg PO QPM [facility] PRN Reason: Protocol Last Admin: 04/17/17 17:58 Dose: 5 mg Furosemide (Lasix Tab*) 20 mg PO QAM [facility] Last Admin: 04/18/17 09:16 Dose: 20 mg Lactated Ringer's (Lactated Ringers 1000 Ml Bag*) 1,000 mls @ 75 mls/hr IV .per rate [facility] Insulin Glargine (Lantus(*)) 90 units SUBCUT BID [facility] Last Admin: 04/18/17 09:19 Dose: 90 units Insulin Human Lispro (Humalog*) 0 units SUBCUT AC [facility] PRN Reason: Protocol Last Admin: 04/18/17 12:36 Dose: 6 unit Losartan Potassium (Cozaar Tab*) 100 mg PO QAM [facility] Last Admin: 04/18/17 09:15 Dose: 100 mg Minoxidil (Loniten Tab*) 5 mg PO QAM [facility] Last Admin: 04/18/17 09:17 Dose: 5 mg Ondansetron HCl (Zofran Inj*) 4 mg IV Q6H PRN PRN Reason: NAUSEA/VOMITING Vital Signs 0904/17/17 04/17/17 18:31 19:46 21:28 Temperature 98.2 F Pulse Rate 114 Respiratory 18 18 18 Rate Blood Pressure 149/57 (mmHg) O2 Sat by Pulse 90 Oximetry 04/17/17 04/17/17 04/18/17 23:18 23:44 02:38 Temperature 99.2 F Pulse Rate 107 106 Respiratory 16 Rate Blood Pressure 153/60 (mmHg) O2 Sat by Pulse 91 97 97 Oximetry 04/18/17 04/18/17 04/18/17 03:43 06:13 07:25 Temperature 98.1 F 97.9 F Pulse Rate 97 98 Respiratory 18 18 17 Rate Blood Pressure 159/68 148/59 (mmHg) O2 Sat by Pulse 96 94 Oximetry 04/18/17 04/18/17 04/18/17 08:00 08:13 11:46 Temperature 97.9 F Pulse Rate 91 Respiratory 24 18 24 Rate Blood Pressure 121/55 (mmHg) O2 Sat by Pulse 95 95 Oximetry 04/18/17 04/18/17 04/18/17 14:29 15:39 16:29 Temperature 97.5 F Pulse Rate 89 Respiratory 18 18 18 Rate Blood Pressure 131/61 (mmHg) O2 Sat by Pulse 95 Oximetry Oxygen Devices in Use Now: None Appearance: obese male sitting up in bed in NAD. A+O x3 Eyes: No Scleral Icterus, PERRLA Ears/Nose/Mouth/Throat: NL Teeth, Lips, Gums, Mucous Membranes Moist Neck: NL Appearance and Movements; NL JVP Respiratory: Symmetrical Chest Expansion and Respiratory Effort, Clear to Auscultation Cardiovascular: NL Sounds; No Murmurs; No JVD, RRR, No Edema Abdominal: NL Sounds; No Tenderness; No Distention Lymphatic: No Cervical Adenopathy Extremities: No Edema, No Clubbing, Cyanosis Neurological: Alert and Oriented x 3, NL Sensation, NL Gait, NL Muscle Strength and Tone Lines/Tubes/Other Access: Clean, Dry and Intact Peripheral IV, Clean, Dry and Intact Other Access - ALMA drain - draing sero-sangeous fluid Nutrition: Taking PO's Result Diagrams: 04/18/17 06:29 04/18/17 06:29 Assess/Plan/Problems-Billing Assessment: Mr. Garcia is a 71 yo male with a PMH of DM2, Obesity, HTN, arthritis, hx of anterior cervical diskectomy & fusion, who underwent an elective decompressive laminectomy. Hospital Medicine was asked to co-medical manage his co-morbidities. - Patient Problems (1) S/P laminectomy Comment: POD #[address] Benedict Switched to inpatient today 2nd to moderate ALMA drainage. Pain controlled well. Continue current regimen with bowel meds (2) Diabetes Comment: - Improving; continue home Lantus 80 units BID and continue lispro SS. Continue FSBG to [facility]. (3) IBS (irritable bowel syndrome) Comment: - not an active issue (4) HTN (hypertension) Comment: - stable. continue home meds (clonidine, lasix, losartan, minoxidil) (5) DVT prophylaxis Comment: SCDs (6) Full code status Status and Disposition: Inpatient s/p lami, Dispo per Neurosurgey team.
[2017-04-18] MEDS: Cetirizine* 10 MG TAB PO SCH (17:36)
[2017-04-18] MEDS: Finasteride TAB* 5 MG PO SCH (17:37)
[2017-04-19] MEDS: HYDROcodone/ACETAMIN 5-325 MG* 1 TAB PO PRN (03:36)
[2017-04-19] MEDS: Insulin LISPRO* 1 UNITS UNIT SUBCUT SCH (08:11)
[2017-04-19 08:13] VITALS: BP 149/68
[2017-04-19] MEDS: cloNIDine TAB* 0.1 MG PO SCH (08:32)
[2017-04-19] MEDS: Furosemide TAB* 40 MG PO SCH (08:32)
[2017-04-19] MEDS: Losartan TAB* 25 MG PO SCH (08:32)
[2017-04-19] MEDS: MinoXIDil TAB* 2.5 MG TAB PO SCH (08:33)
[2017-04-19] MEDS: Insulin GLARGINE(*) 1 UNITS UNIT SUBCUT SCH (08:33)
[2017-04-19 09:09] LABS: Hematocrit 38 % (42-52); Hemoglobin 12.8 g/dl (14.0-18.0); Mean Corpuscular HGB Conc 33 g/dl (31-36); Mean Corpuscular Hemoglobin 29 pg (27-31); Mean Corpuscular Volume 88 fL (80-94); Mean Platelet Volume 9 um3 (7.4-10.4); Red Blood Count 4.38 10^6/ul (4.0-5.4); Red Cell Distribution Width 14 % (10.5-15); White Blood Count 8.8 10^3/ul (3.5-10.8)
--- NOTE | 2017-04-19 09:18 | PN ---
Progress Note - Progress Note Date of Service: 04/19/17 SOAP: Subjective: []POD # 2 Feels better Has ambulated Drainage decreased Objective: []Neuro intact Drain removed Assessment: [] Satis post op course Plan: []D/C today D/C Instructions given
[2017-04-19 09:20] LABS: Calcium 8.6 mg/dL (8.6-10.3); EGFR African American 111.6 (>60); EGFR Non-African American 86.8 (>60); Potassium 3.8 mmol/L (3.5-5.0)
--- NOTE | 2017-04-19 14:56 | OP ---
OPERATIVE REPORT: DATE OF OPERATION: 04/17/17 DATE OF : 47 PRIMARY SURGEON: Raad Benedict MD SHAKE MAKER: AIDEN Gomez ANESTHESIA: General. PRE-OP DIAGNOSIS: Lumbar spinal stenosis, L2-3, L3-4, L4-5. POST-OP DIAGNOSIS: Lumbar spinal stenosis, L2-3, L3-4, L4-5. OPERATIVE PROCEDURE: Decompressive lumbar laminectomy, L2-3, L3-4, L4-5. DESCRIPTION OF PROCEDURE: After satisfactory general anesthesia was obtained, the patient was place d on the operating table in a prone position with the chest supported on the Fredrick frame and the ba ck slightly flexed. The lumbar region was clipped, prepped, and draped in a sterile manner for lumb ar laminectomy and a skin incision outlined from L2-L5. This incision was infiltrated with 1% Xyloc genesis with epinephrine, after which it was turned down sharply to the level of the lumbar fascia. Th e fascia was divided along the spinous processes from L2-L5 and the paraspinal musculature was strip ped away from these posterior elements using the periosteal elevator and monopolar cautery. The pat ient was morbidly obese and the exposure was quite deep. The posterior elements were stripped free of paraspinal musculature and the Versa-Trac retractor employed for self-retaining retractor assista nce. An intraoperative x-ray was obtained verifying interspace localization, after which a decompre ssion was carried out, initially at the L2-3 level. The spinous processes of L2, L3, L4, and the noonan perior aspect of the spinous process of L5 were removed with a combination of the George rib shear and Leksell rongeurs. Beginning at the L2 level, the remaining portion of the base of L2 spinous pr ocess and the inferior aspect of the lamina was thinned out with a Midas Aguila drill and a decompressi on carried out with a Kerrison rongeur. This was carried superiorly until the attachment of ligamen tanner flavum was taken down. The pathology at this level was noted to be a combination of ligamentous thickening as well as bony hypertrophy. The decompression was carried out laterally and inferiorly until both L3 nerve roots are noted to be free in their course. Attention was then directed to the L3-4 level, where a similar decompression was carried out. Similar findings of ligamentum hypertrop hy and bony hypertrophy were found. At the conclusion of the decompression at this level, both L4 n erve roots were noted to be free in their course. At the L4-5 level, the changes were somewhat less extensive, but there was still moderate ligamentum thickening as well as bony hypertrophy contribut ing to stenosis. This was decompressed until both the L5 nerve roots were noted to be free in their course. Hemostasis was obtained with temporary Gelfoam and after assuring adequate hemostasis, the wound was thoroughly irrigated, after which a drain was placed in the epidural space and tunneled o ut toward the left side. The fascia was then reapproximated with 0 Vicryl suture. The subcutaneous tissue was closed with 3-0 Vicryl suture and the skin closed with skin clips. The estimated blood l oss was 400 cc and the final sponge, padding, and needle counts were correct. The patient was taken to the recovery room, extubated, and in stable condition. [id number]/[facility] #: [id number]
== END 2017-04-19 10:20 | disposition home or self-care (01) | DRG 516 ==
LOC: OR 06:28 → SSU 12:30 → OBSVTOIN 04-18 16:04
PROVIDERS: ADMIT Neurological Surgery; ATTEND Neurological Surgery
PROC: 01NB0ZZ Release Lumbar Nerve, Open Approach (ICD-10-PCS; principal; 2017-04-17 07:45)
DX: M48.06 Spinal stenosis, lumbar region (principal); M47.12 Other spondylosis with myelopathy, cervical region; E11.42 Type 2 diabetes mellitus with diabetic polyneuropathy; J44.9 Chronic obstructive pulmonary disease, unspecified; Z68.42 Body mass index [BMI] 45.0-49.9, adult; I10 Essential (primary) hypertension; E66.01 Morbid (severe) obesity due to excess calories; E78.5 Hyperlipidemia, unspecified; M19.90 Unspecified osteoarthritis, unspecified site; K58.9 Irritable bowel syndrome, unspecified; Z96.653 Presence of artificial knee joint, bilateral; N40.0 Benign prostatic hyperplasia without lower urinary tract symptoms; Z88.8 Allergy status to other drugs, medicaments and biological substances; Z88.2 Allergy status to sulfonamides; Z87.891 Personal history of nicotine dependence; Z98.1 Arthrodesis status; Z89.419 Acquired absence of unspecified great toe; Z82.49 Family history of ischemic heart disease and other diseases of the circulatory system; Z90.49 Acquired absence of other specified parts of digestive tract
CPT/HCPCS: 36415; 72100; 80048; 85025; 94760; A9270-GY; G0378; J0690; J1100; J2001; J2250; J2405; J2704; J3010

== ENCOUNTER 2017-11-07 05:16 | Emergency (ER) | payer MEDICARE, BC ==
[2017-11-07] MEDS ORDERED: Albuterol/Ipratropium NEB.SOL* Albuterol 2.5 MG/Ipratropium 0.5 MG 3 ML INH ONE (05:21)
[2017-11-07 05:49] LABS: ABS Basophils 0.1 10^3/ul (0-0.2); ABS Eosinophils 0.3 10^3/ul (0-0.6); ABS Lymphocytes 1.3 10^3/ul (1.0-4.8); ABS Monocytes 0.6 10^3/ul (0-0.8); ABS Neutrophils 5.1 10^3/ul (1.5-7.7); ABS Nucleated RBC 0 10^3/ul; Eosinophil % 3.6 % (0-6); Hematocrit 43 % (42-52); Hemoglobin 14.1 g/dl (14.0-18.0); Lymphocyte % 17.4 % (25-47); Mean Corpuscular HGB Conc 33 g/dl (31-36); Mean Corpuscular Hemoglobin 28 pg (27-31); Mean Corpuscular Volume 85 fL (80-94); Mean Platelet Volume 8.1 um3 (7.4-10.4); Nucleated Red Blood Cells % 0; Platelet Count 161 10^3/ul (150-450); Red Blood Count 5.04 10^6/ul (4.0-5.4); Red Cell Distribution Width 15 % (10.5-15); White Blood Count 7.3 10^3/ul (3.5-10.8)
[2017-11-07 05:55] LABS: INR 1.02 (0.77-1.02)
[2017-11-07 06:06] LABS: EGFR Non-African American 91.3 (>60)
--- OUTSIDE RECORDS SUMMARY | 2017-11-07 06:35 | XMS REPORT ---
:1945 External Reference #:[id number] Author Organization [facility] Address [address], [address] [place] [address] Phone [phone] Care Team Providers Name Role Phone Lito Sosa MD Care Team Information Quotation Checker Unavailable Lito Sosa MD Primary Care Physician Unavailable Payers Type Date Identification Numbers Payment Provider Subscriber Medicare Primary Policy Number: [id number] Medicare George Garcia PayID: [id number] [address] [place] [address] Medigap Part B [place]ID: [id number] [place] [address] Medigap Part B Expires: 2017 Policy Number: Tom Garcia [id number] PayID: [id number] [address] [address] Problems Description No Information Family History Date Family Member(s) Problem(s) Comments General Non Contributory Social History Type Date Description Comments Marital Status Home Environment Lives With Occupation Retired Work Status Retired Cigarette Use Never Smoked Cigarettes ETOH Use Denies alcohol use Smoking Patient is a former smoker 1 1/2 - 2 PPD x30 years Recreational Drug Use Denies Drug Use Daily Caffeine Consumes on average 2 cups of regular coffee per day Exercise Type/Frequency Does not exercise Allergies, Adverse Reactions, Alerts Date Description Reaction Status Severity Comments 10/20/2012 Penicillin active 10/20/2012 Lipitor active 04/13/2014 Sulfa Drugs active 12/16/2016 Synthroid active 12/16/2016 Levothyroxine active 12/16/2016 Atenolol active Medications Medication Date Status Form Strength Qnty SIG Indications Ordering Provider Aspirin Active Chewtabs 81mg 1 by mouth Unknown /0000 every day Clonidine HCL Active Tablets 0.3mg 1 tab by Unknown /0000 mouth twice a day Dutasteride Active Capsules 0.5mg 1 cap by Unknown /0000 mouth every day Losartan Active Tablets 100mg 1 by mouth Unknown Potassium /0000 every day Lantus Active Solution 100Unit/M twice a Unknown /0000 L day inject 95 units subq Minoxidil Active Tablets 2.5mg 2 tab by Unknown /0000 mouth every day Furosemide Active Tablets 20mg 1 by mouth Unknown /0000 twice daily Simethicone Active Chewtabs 80mg 1 tab by Unknown /0000 mouth four times a day as needed Novolog Flexpen Active Solution 100Unit/M sliding Unknown / Pen-Inject L scale Oxycodone/Acetami 11/17 Hx Tablets 5-325mg 56tab 1-2 tabs tabby Garvin s by mouth MD Rey - every 4 04/13 hours needed for pain Warfarin Sodium 11/06 Hx Tablets 1mg 20tab as Virgie s laurie Le MD - by phone 04/13 Warfarin Sodium 11/05 Hx Tablets 5mg 50tab as Virgie s Rey sullivan MD - currently 04/13 16mg per day Novolin 70/30 Hx Suspension (70-30)10 12u Unknown /0000 0Unit/ML subcutaneo us if FS greater than 150 tid Hydrochlorothiazi Hx Tablets 25mg 30tab 1 by mouth Unknown de s every day - 12/16 Levothyroxine Hx Tablets 112mcg 1 by mouth Unknown Sodium /0000 every day - 12/16 Cetirizine HCL Hx Tablets 10mg 1 by mouth Unknown /0000 every day Chlorthalidone 00 Hx Tablets 25mg 1 by mouth Unknown /0000 every day Vital Signs Date Vital Result Comment 10/14/2017 BP Systolic Sitting Left Arm 182 mmHg BP Diastolic Sitting Left Arm 90 mmHg Heart Rate 107 /min Respiratory Rate 20 /min Height 72 inches 6'0" Weight 357.00 lb BMI (Body Mass Index) 48.4 kg/m2 BSA (Body Surface Area) 2.73 m2 [place] body weight in kilograms 81 O2 % BldC Oximetry 91 % room air 12/16/2016 BP Systolic 180 mmHg BP Diastolic 90 mmHg Height 72 inches 6'0" Weight 343.00 lb BMI (Body Mass Index) 46.5 kg/m2 BSA (Body Surface Area) 2.68 m2 [place] body weight in kilograms 81 04/13/2014 BP Systolic Sitting Right Arm 180 mmHg BP Diastolic Sitting Right Arm 78 mmHg Height 70.5 inches 5'10.50" Weight 313.00 lb BMI (Body Mass Index) 44.3 kg/m2 BSA (Body Surface Area) 2.54 m2 10/20/2012 Heart Rate 96 /min 144/88 Height 69.50 inches 5'9.50" Weight 304.00 lb 08/03/2012 Height 69.5 inches 5'9.50" Weight 303.00 lb Results Description No Information Procedures Date CPT Code Description Status 04/13/2014 06199 Radiology, Both Knees Standing Completed 04/13/2014 90841 Radiology, Both Knees Standing Completed 04/13/2014 94254 Radiology, Distal Femur--Knee 1 Or 2 Views Completed 10/22/2012 83182 Total Knee Arthroplasty medial&lateral compartments Completed w/wo rucker res Encounters Type Date Location Provider CPT E/M Dx Office Visit 12/16/2016 3:15p Endocrinology Praveen Denson M.D. 27140 E66.9 I10 E03.9 E11.65 G47.30 H90.3 Z96.653 Office Visit 11/09/2014 10:30a Orthopaedic Office Linda Mcqueen [phone] [facility] Office Visit 04/27/2014 2:15p Orthopaedic Office Len Gill D.O. [phone] Office Visit 04/13/2014 1:45p Orthopaedic Office Linda Mcqueen [address] [facility] V43.65 728.13 V54.81 715.16 719.46 Plan of Care Future Appointment(s):10/20/2017 9:00 am - Kirk Guerra MD at Operating Room09/2017 11:00 am - Ivania Redmond NP at [facility]/20/2018 - Kirk Guerra , MDR91.1 Solitary pulmonary noduleComments:I reviewed his CT chest which shows a ANJEL mass highly suspicious for malignancy. I am going to set him up with a bronchoscopy. The plan is to set him up for 10/20/17 at 9 AM. Needs to be NPO past midnight after 10/19/17. Coags will need to be checked.Follow up:2 weeks, with néstor.J44.9 Chronic obstructive pulmonary disease, unspecifiedNew Orders: PFT With BronchodilatorComments:I am checking PFTs.G47.33 Obstructive sleep apnea (adult) (pediatric)Comments:Not interested in going back on CPAP.Z01.812 Encounter for preprocedural laboratory examinationNew Labs:Act Partial Thrombo TimeProtime
[2017-11-07] MEDS ORDERED: Iodixanol* (CONTRAST) 320 MG/ML 100 ML SDV IV ONE (06:57)
--- NOTE | 2017-11-07 07:13 | ED ---
Ainsley Daugherty Gabriel, scribed for Cecil Jain MD on 11/07/17 at 0531 . Shortness of Breath - HPI Summary HPI Summary: This patient is a 72 year old M BIBA to [facility] with a chief complaint of SOB that began 3 days ago. Pt was seen by PCP for similar symptoms earlier this week. Pt has intermittent chest discomfort. He has CPAP that he does not use. Patient denies rhinorrhea, congestion, fever, wheezing, ABD pain, and n/v/d. - History of Current Complaint Time Seen by Provider: 11/07/17 05:19 Hx Obtained From: Patient Onset/Duration: Still Present Timing: Constant Current Severity: Moderate Associated Signs & Symptoms: Negative - rhinorrhea, congestion, fever, CP, wheezing, ABD pain, and n/v/d. - Allergy/Home Medications Allergies/Adverse Reactions: Allergies Allergy/AdvReac Type Severity Reaction Status Date / Time amlodipine Allergy Severe Shortness Verified 11/07/17 05:25 of Breath atenolol Allergy Severe Shortness Verified 11/07/17 05:25 of Breath atorvastatin Allergy Severe Muscle Ache Verified 11/07/17 05:25 pantoprazole Allergy Severe Muscle Ache Verified 11/07/17 05:25 simvastatin Allergy Severe Muscle Ache Verified 11/07/17 05:25 amoxicillin Allergy Intermediate GI Upset Verified 11/07/17 05:25 enalapril Allergy Intermediate Shortness Verified 11/07/17 05:25 of Breath glipizide Allergy Intermediate Muscle Ache Verified 11/07/17 05:25 hydrochlorothiazide Allergy Intermediate See Comment Verified 11/07/17 05:25 levothyroxine Allergy Intermediate Shortness Verified 11/07/17 05:25 of Breath spironolactone Allergy Intermediate GI Upset Verified 11/07/17 05:25 montelukast Allergy Mild Itching Verified 11/07/17 05:25 baclofen Allergy Unknown Unknown Verified 11/07/17 05:25 Reaction Details esomeprazole Allergy Unknown Unknown Verified 11/07/17 05:25 Reaction Details oxybutynin Allergy Unknown Unknown Verified 11/07/17 05:25 Reaction Details paroxetine Allergy Unknown Unknown Verified 11/07/17 05:25 Reaction Details zolpidem Allergy Unknown Unknown Verified 11/07/17 05:25 Reaction Details BETA BERTO Allergy Unknown Unknown Uncoded 11/07/17 05:25 Reaction Details Beta Blockers Allergy Unknown Uncoded 11/07/17 05:25 Reaction Details PMH/Surg Hx/FS Hx/Imm Hx Endocrine/Hematology History: Reports: Hx Diabetes, Hx Thyroid Disease Cardiovascular History: Reports: Hx Hypercholesterolemia, Hx Hypertension Denies: Hx Angina, Hx Congestive Heart Failure, Hx Coronary Artery Disease, Hx Myocardial Infarction, Hx Pacemaker/ICD, Hx Valvular Heart Disease Respiratory History: Reports: Hx Asthma - A CHILD(prior record), Hx Chronic Obstructive Pulmonary Disease (COPD), Hx Pneumonia, Hx Sleep Apnea, Other Respiratory Problems/Disorders - RECENT URI, JUST FINISHED ABX GI History: Reports: Hx Irritable Bowel, Other GI Disorders - OCC STOMACH PAIN, NEG WORKUP PER DR GUZMAN; IBS per Driscoll Denies: Hx Ulcer History: Reports: Other Problems/Disorders - BPH Denies: Hx Renal Disease Musculoskeletal History: Reports: Hx Arthritis, Other Musculoskeletal History - CERVICAL SPONDYLOSIS Sensory History: Reports: Hx Contacts or Glasses, Hx Deafness - [place] not deaf Denies: Hx Hearing Aid Opthamlomology History: Reports: Hx Contacts or Glasses Neurological History: Reports: Other Neuro Impairments/Disorders - BALANCE ISSUES, USES WALKER(states trouble seeing at night) Psychiatric History: Denies: Hx Panic Disorder - Surgical History Surgery Procedure, Year, and Place: lt knee replacement 2012, lt great toe REATTACHED 1970, [facility]. 08/25/15 ANTERIOR CERVICAL DISC AND FUSION C4-5- 6. RIGHT KNEE REPLACEMENT 07/2016 Hx Anesthesia Reactions: No Infectious Disease History: No Infectious Disease History: Denies: Hx Clostridium Difficile, Hx Hepatitis, Hx Human Immunodeficiency Virus (HIV), Hx of Known/Suspected MRSA, Hx Shingles, Hx Tuberculosis, Hx Known/ Suspected VRE, Hx Known/Suspected VRSA, History Other Infectious Disease, Traveled Outside the [place] in Last 30 Days - Family History Known Family History: Positive: Cardiac Disease - Social History Alcohol Use: None Hx Substance Use: No Substance Use Type: Reports: None Hx Tobacco Use: Yes Smoking Status (MU): Former Smoker Type: Cigarettes Amount Used/How Often: 2 PPD FOR 16 YRS Length of Time of Smoking/Using Tobacco: 15 YRS Have You Smoked in the Last Year: No Review of Systems Negative: Fever Negative: Nasal Discharge Positive: Chest Pain - intermittent discomfort Positive: Shortness Of Breath Negative: Abdominal Pain All Other Systems Reviewed And Are Negative: Yes Physical Exam - Summary Physical Exam Summary: Appearance: Well appearing, no pain distress Skin: warm, dry, reflects adequate perfusion Head/face: normal Eyes: EOMI, ALEA ENT: moist mucous mernbranes, thick nasal secretions that are brown Neck: supple, non-tender Respiratory: globally diminished breath sounds, no wheezes rales, or rhonchi Cardiovascular: tachycardic but regular,, pulses symmetrical Abdomen: non-tender, soft Bowel Sounds: present Musculoskeletal: 1-2+ bilateral LE edema Neuro: normal, sensory motor intact, A&Ox3 Triage Information Reviewed: Yes Vital Signs On Initial Exam: Initial Vitals Temp Pulse Resp BP Pulse Ox 98.6 F 99 17 159/67 92 11/07/17 05:20 11/07/17 05:20 11/07/17 05:20 11/07/17 05:20 11/07/17 05:20 Vital Signs Reviewed: Yes Diagnostics - Vital Signs Vital Signs Temp Pulse Resp BP Pulse Ox 11/07/17 05:20 98.6 F 99 17 159/67 92 - Laboratory Lab Results: Lab Results 11/07/17 11/07/17 11/07/17 Range/Units 05:40 05:40 05:40 WBC 7.3 (3.5-10.8) 10^3/ul RBC 5.04 (4.0-5.4) 10^6/ul Hgb 14.1 (14.0-18.0) g/dl Hct 43 (42-52) % MCV 85 (80-94) fL MCH 28 (27-31) pg MCHC 33 (31-36) g/dl RDW 15 (10.5-15) % Plt Count 161 (150-450) 10^3/ul MPV 8.1 (7.4-10.4) um3 Neut % (Auto) 70.2 (38-83) % Lymph % (Auto) 17.4 L (25-47) % [place] % (Auto) 7.6 H (0-7) % Eos % (Auto) 3.6 (0-6) % Baso % (Auto) 1.2 (0-2) % Absolute Neuts (auto) 5.1 (1.5-7.7) 10^3/ul Absolute Lymphs (auto) 1.3 (1.0-4.8) 10^3/ul Absolute Monos (auto) 0.6 (0-0.8) 10^3/ul Absolute Eos (auto) 0.3 (0-0.6) 10^3/ul Absolute Basos (auto) 0.1 (0-0.2) 10^3/ul Absolute Nucleated RBC 0 10^3/ul Nucleated RBC % 0 INR (Anticoag Therapy) (0.77-1.02) Sodium 137 L (139-145) mmol/L Potassium 4.3 (3.5-5.0) mmol/L Chloride 102 (101-111) mmol/L Carbon Dioxide 30 (22-32) mmol/L Anion Gap 5 (2-11) mmol/L BUN 20 (6-24) mg/dL Creatinine 0.83 (0.67-1.17) mg/dL Est GFR ( Amer) 117.5 (>60) Est GFR (Non-Af Amer) 91.3 (>60) BUN/Creatinine Ratio 24.1 H (8-20) Glucose 164 H (70-100) mg/dL Lactic Acid (0.5-2.0) mmol/L Calcium 9.5 (8.6-10.3) mg/dL Total Bilirubin 0.60 (0.2-1.0) mg/dL AST 16 (13-39) U/L ALT 23 (7-52) U/L Alkaline Phosphatase 84 (34-104) U/L Troponin I 0.01 (<0.04) ng/mL B-Natriuretic Peptide 57 ( - 100) pg/mL Total Protein 7.4 (6.4-8.9) g/dL Albumin 3.7 (3.2-5.2) g/dL Globulin 3.7 (2-4) g/dL Albumin/Globulin Ratio 1.0 (1-3) 11/07/17 11/07/17 Range/Units 05:40 05:40 WBC (3.5-10.8) 10^3/ul RBC (4.0-5.4) 10^6/ul Hgb (14.0-18.0) g/dl Hct (42-52) % MCV (80-94) fL MCH (27-31) pg MCHC (31-36) g/dl RDW (10.5-15) % Plt Count (150-450) 10^3/ul MPV (7.4-10.4) um3 Neut % (Auto) (38-83) % Lymph % (Auto) (25-47) % [place] % (Auto) (0-7) % Eos % (Auto) (0-6) % Baso % (Auto) (0-2) % Absolute Neuts (auto) (1.5-7.7) 10^3/ul Absolute Lymphs (auto) (1.0-4.8) 10^3/ul Absolute Monos (auto) (0-0.8) 10^3/ul Absolute Eos (auto) (0-0.6) 10^3/ul Absolute Basos (auto) (0-0.2) 10^3/ul Absolute Nucleated RBC 10^3/ul Nucleated RBC % INR (Anticoag Therapy) 1.02 (0.77-1.02) Sodium (139-145) mmol/L Potassium (3.5-5.0) mmol/L Chloride (101-111) mmol/L Carbon Dioxide (22-32) mmol/L Anion Gap (2-11) mmol/L BUN (6-24) mg/dL Creatinine (0.67-1.17) mg/dL Est GFR ( Amer) (>60) Est GFR (Non-Af Amer) (>60) BUN/Creatinine Ratio (8-20) Glucose (70-100) mg/dL Lactic Acid 1.3 (0.5-2.0) mmol/L Calcium (8.6-10.3) mg/dL Total Bilirubin (0.2-1.0) mg/dL AST (13-39) U/L ALT (7-52) U/L Alkaline Phosphatase (34-104) U/L Troponin I (<0.04) ng/mL B-Natriuretic Peptide ( - 100) pg/mL Total Protein (6.4-8.9) g/dL Albumin (3.2-5.2) g/dL Globulin (2-4) g/dL Albumin/Globulin Ratio (1-3) Result Diagrams: 11/07/17 05:40 11/07/17 05:40 Lab Statement: Any lab studies that have been ordered have been reviewed, and results considered in the medical decision making process. - Radiology CXR Radiology Interpretation Completed By: ED Physician - atelectasis in right base. Mass in left base with atelectasis - EKG 0559 Cardiac Rate: Tachycardia EKG Rhythm: Sinus Tachycardia - at 105 BPM EKG Interpretation: low voltage, nml axis, nml ST Course/Dx - Course Course Of Treatment: pt with chest mass and hypoxia. Has yet to have bronchoscopy. Increased atelectasis. Will get CTA and admit. Improved on oxygen. Diminished but without wheezing. Will cover with antibiotics empirically. D/W Dr Paige Madrigal who will admit. - Diagnoses Differential Diagnosis/HQI/PQRI: Positive: Airway Obstruction, Bronchitis, CHF, COPD Exacerbation, Pneumonia, Pulmonary Embolism, Pulmonary Edema Provider Diagnoses: Mass of left lung, Hypoxia - Physician Notifications Discussed Care of Patient With: Ye Madrigal Time Discussed With Above Provider: 07:00 Instructed by Provider To: Admit As Inpatient Discharge - Sign-Out/Discharge Documenting (check all that apply): Discharge - Discharge Plan Condition: Fair Disposition: ADMITTED TO [facility] Referrals: Lito Sosa MD [Primary Care Provider] - - Billing Disposition and Condition Condition: FAIR Disposition: [facility] [place] The documentation as recorded by the Ainsley masterson Gabriel accurately reflects the service I personally performed and the decisions made by , Cecil Jain MD.
--- NOTE | 2017-11-07 07:46 | RAD ---
Indication: Shortness of breath. 2 views of the chest are reviewed and compared to previous exam dated September 11, 2007. Again noted is a left parahilar mass with some atelectasis peripherally. Cardiomegaly is noted. Lung morrow appear hyperinflated. IMPRESSION: Left perihilar mass with some peripheral atelectasis or postobstructive infiltrate.
--- NOTE | 2017-11-07 09:11 | RAD ---
HISTORY: Lung mass, hypoxia COMPARISONS: September 11, 2017 TECHNIQUE: Multiple contiguous axial CT scans of the chest were obtained after the administration of nonionic intravenous contrast, timed to the pulmonary arterial phase of contrast enhancement.. Coronal and sagittal multiplanar reformations are also submitted for review. FINDINGS: NECK AND THYROID: The lower neck and thyroid are unremarkable. CHEST WALL: There is no lower cervical, axillary, or supraclavicular lymphadenopathy by size criteria. HEART AND PERICARDIUM: The heart is unremarkable. AORTA AND PULMONARY VASCULATURE: There is no pulmonary arterial filling defect to suggest pulmonary embolism. There is no linear filling defect within the aorta to suggest aortic dissection. There is atherosclerosis of the thoracic aorta. MEDIASTINUM: There are multiple subcentimeter short axis prevascular lymph nodes. This includes a rounded prevascular lymph node on axial image 26 that measures up to 0.9 cm in short axis. ZEN: There is no hilar lymphadenopathy by size criteria. AIRWAY AND ESOPHAGUS: The airway is unremarkable, without endobronchial filling defect. The esophagus is grossly normal. LUNG PARENCHYMA: Again noted is a rounded mass of the left upper lobe measuring approximately 3.4 x 3.1 cm in size. PLEURA: No pleural abnormalities are noted. UPPER ABDOMEN: There is fatty infiltration of the liver. BONES AND SOFT TISSUES: Degenerative changes are noted. OTHER: None. IMPRESSION: 1. NO PULMONARY ARTERIAL FILLING DEFECT TO SUGGEST PULMONARY EMBOLISM. 2. AGAIN NOTED IS A MASS OF THE LEFT UPPER LOBE. 3. THERE IS A ROUNDED PREVASCULAR LYMPH NODE THAT IS AT THE UPPER LIMITS OF NORMAL IN SIZE. THIS IS INDETERMINATE BASED ON IMAGING APPEARANCE.
[2017-11-07 10:44] VITALS: BP 128/96
--- NOTE | 2017-11-07 13:02 | CONS ---
CONSULTATION REPORT: DATE OF CONSULT: 11/07/17 PRIMARY CARE PROVIDER: [facility] HEALTHCARE PROXY: His . CODE STATUS: DNR. Discussed with the patient and his and his son. CONSULTATION REQUESTED BY: Emergency room. REASON FOR CONSULTATION: Hypoxia, mass in chest. History obtained from interview with the patient, review of past medical records and discussion with the patient's oncologist's office. HISTORY OF PRESENT ILLNESS: This is a 72-year-old man, past medical history includes morbid obesity as well as known 3 cm mass in the left upper lobe of his lung, discovered in July. He has generally been feeling ill throughout the last couple of months; however, increased shortness of breath over the last 3 days. His baseline exercise tolerance was about 20 feet limited by bilateral knee pain, but noticed that he has been increasingly short of breath, walking to the car. He woke up at 1 a.m. on the night of admission coughing and had difficulty returning to sleep. He just noted cough with clear phlegm, but no fevers or chills. No nausea, vomiting, symptoms, sick contacts, although his granddaughter had a runny nose 2 days prior. He has had chronic constipation. He sleeps in a recliner where he has been sleeping for the last 8 to 10 years because "it is a bad habit" and "does not like sleeping lying flat." He has lower extremity swelling that has not changed in severity. He notes he has been taking his medications at home without fail and he uses a low salt diet; however, this does include ham on sandwiches when queried in more detail and unclear what other salt products. EMS was summoned to his house, where they found him 89% to 90% on room air. The patient ambulated to the ambulance and was transferred to [facility]. When seen by this author, he is feeling back to his baseline with no complaints. He denied chest pain at any time. His mass was discovered on 09/11/17 and 2 weeks prior, in [place] performed a biopsy. It was thought to be nondiagnostic with another biopsy planned a week from today. CTA of the chest was performed in the emergency room with details indicated below. PAST MEDICAL HISTORY: Includes type 2 diabetes; arthritis; hypertension; obesity; hyperlipidemia; history of obstructive sleep apnea, however, no longer has a machine, no longer uses it. 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 HOME MEDICATIONS: Include: 1. Acetaminophen 1000 mg. 2. Activated charcoal caps. 3. Aspirin 81 mg. 4. Cetirizine 10 mg. 5. Clonidine 0.3 mg twice daily. 6. Vitamin B12 1000 mcg daily. 7. Docusate. 8. Avodart 0.5 mg in the evening. 9. Lasix 20 mg daily. 10. Insulin sliding scale and insulin glargine 95 units. 11. Losartan 100 mg daily. 12. Minoxidil 5 mg daily. 13. Saline spray. 14. Simethicone. ALLERGIES: AMLODIPINE, ATENOLOL, ATORVASTATIN, PANTOPRAZOLE, SIMVASTATIN, AMOXICILLIN, ENALAPRIL, GLIPIZIDE, HYDROCHLOROTHIAZIDE, LEVOTHYROXINE, SPIRONOLACTONE, MONTELUKAST, BACLOFEN, ESOMEPRAZOLE, OXYBUTYNIN, PAROXETINE, ZOLPIDEM, and BETA BLOCKERS. FAMILY HISTORY: CAD. SOCIAL HISTORY: Former tobacco. Quit 35 years prior, 15 pack year smoking history. No alcohol. 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 REVIEW OF SYSTEMS: Notable for episode of shortness of breath, self-limited, overnight. Sick contact 2 days prior, cough and chronic constipation; otherwise all other systems are negative. PHYSICAL EXAM: Vitals when seen by this author: 152/63, heart rate 105, respiratory rate 18, 92% to 93% on room air, T-max 98.6. Obese man, sitting up in bed, interactive, no apparent distress. He has redundant tissue over the neck. His oropharynx is clear. He is Mallampati IV. Moist mucous membranes. He has regular rate and rhythm. No murmurs, rubs, or gallops. His lungs are clear with trace rales in his left lower base. His abdomen is soft, nontender. He has umbilical hernia. Extremities are warm and well perfused. He has trace to 1+ bilateral left lower extremity edema. He is alert and oriented x3. DIAGNOSTIC STUDIES/LAB DATA: Labs reviewed. White blood cell count of 7.6. INR is 1. Lactic acid 1.3. Troponin I 0.01, decreased to 0.00 on repeat check. BNP 57. Data reviewed. CTA chest and thorax notable for no pulmonary arterial defects, just pulmonary embolism. Mass in the upper lobe measuring 3.4 x 3.1 cm in size. No pleural effusions. Airway is unremarkable. Prevascular lymph nodes in the upper limits of normal in size. ASSESSMENT AND PLAN: A 72-year-old man with past medical history as outlined above including known lung mass; morbid obesity; history of obstructive sleep apnea, not on CPAP, presented with acute onset shortness of breath, resolved without intervention. Shortness of breath. Suspect multifactorial, potentially viral etiology in the setting of sick contact with his granddaughter, however, did improve with albuterol. I suspect the patient has uncontrolled obstructive sleep apnea based on his body habitus, his prolonged expiratory phase on clinical exam. I encouraged him heavily to seek repeat sleep study and CPAP trial as outpatient. I do not think he warrants a hospital stay. He has no evidence of heart failure, pneumonia, pleural effusions, pulmonary embolism or cardiac event. He has no evidence of infection at this time. He is noted to have heart rate greater than 100. I contacted his oncologist's office who saw him on 10/14/17 and also noted his heart rate to be 107 at that time. I suspect he has chronically elevated heart rate at this time in the setting of both uncontrolled obstructive sleep apnea as well the mass in his chest, which may represent a cancer. No changes to the patient's home medications. I recommend discharge at this time. Discussed with the patient's family who is in agreement and Dr. Winkler. The patient will be discharged with a CD of his CT chest. I also discussed with the emergency room and the patient's family. It was discussed at length return to emergency room instructions including worsening shortness of breath or chest pain, loss of consciousness, near loss of consciousness or fevers. The patient and his acknowledge their understanding thoroughly. TIME SPENT: Greater than 60 minutes was spent on discharging this patient, greater than half was spent [id number] with the patient and the family. [id number]/[facility] #: [id number] MTDD
--- NOTE | 2017-11-07 16:47 | ED ---
IKendell Angela, scribed for Tesfaye Winkler MD on 11/07/17 at 1257 . Progress - Progress Note Progress Note: This pt was not signed out to me. Dr. Madrigal, hospitalist, has asked me to print the discharge instructions for the pt. I was not involved in the care of this pt. Course/Dx - Diagnoses Provider Diagnoses: Hypoxia Discharge - Sign-Out/Discharge Documenting (check all that apply): Discharge - discharge to home - Discharge Plan Condition: Stable Disposition: HOME Patient Education Materials: Hypoxia (ED) Referrals: Lito Sosa MD [Primary Care Provider] - 3 Days Additional Instructions: Please follow up with your primary care provider. RETURN TO THE ED FOR ANY NEW OR WORSENING SYMPTOMS. The documentation as recorded by the Kendell masterson Angela accurately reflects the service I personally performed and the decisions made by me, Tesfaye Winkler MD.
== END 2017-11-07 12:56 | disposition short-term general hospital (02) ==
LOC: ED 05:16
DX: R91.8 Other nonspecific abnormal finding of lung field (principal); R09.02 Hypoxemia; Z87.891 Personal history of nicotine dependence; E11.9 Type 2 diabetes mellitus without complications; E78.00 Pure hypercholesterolemia, unspecified; I10 Essential (primary) hypertension; J44.9 Chronic obstructive pulmonary disease, unspecified
CPT/HCPCS: 36415; 71046; 71275; 80053; 83605; 83880; 84484; 85025; 85610; 93005; 94640; 96374; 99283; A9270-GY; Q9967